=== PATIENT | female | born 1935 | race Caucasian/White ===

== ENCOUNTER 2019-12-18 06:00 | Outpatient (RCR) | payer MEDICARE, SELFPAY | END 2020-01-13 23:59 | disposition home or self-care (01) | LOC: SPT 06:00 | PROVIDERS: PCP Family Medicine; Referring Provider Family Medicine; Visit Provider Family Medicine | DX: M99.01 Segmental and somatic dysfunction of cervical region (principal); M25.511 Pain in right shoulder; R26.89 Other abnormalities of gait and mobility | CPT/HCPCS: 97110; 97162 ==

== ENCOUNTER 2020-01-14 06:00 | Outpatient (RCR) | payer MEDICARE, SELFPAY | END 2020-02-13 23:59 | disposition home or self-care (01) | LOC: SPT 06:00 | PROVIDERS: PCP Family Medicine; Referring Provider Family Medicine; Visit Provider Family Medicine | DX: M99.01 Segmental and somatic dysfunction of cervical region (principal); M25.511 Pain in right shoulder; R26.89 Other abnormalities of gait and mobility | CPT/HCPCS: 97110 ==

== ENCOUNTER 2020-09-10 05:00 | Outpatient (CLI) | payer MEDICARE, SELFPAY ==
[2020-09-10 05:34] VITALS: BMI 25.4
[2020-09-10 05:38] VITALS: BP 154/85; PULSE 72; RESP 17; TEMP 36.9; O2SAT 94
[2020-09-10 08:06] VITALS: BP 146/84; PULSE 66; PULSE 69; O2SAT 95; O2SAT 96
--- NOTE | 2020-09-10 08:11 | PC.NURSE ---
left ambulatory at 0810
--- NOTE | 2020-09-17 15:03 | DCPLANNER ---
manager golf had message that patient received the monoclonal antibody infusion. manager golf called , to check on patient after receiving the infusion. manager golf was unable to speak with patient and unable to leave a voicemail due to a busy signal when called patients phone number.
== END 2020-09-10 05:01 | disposition home or self-care (01) ==
LOC: ER 05:04
PROVIDERS: PCP Family Medicine; Visit Provider Family Medicine
DX: U07.1 COVID-19 (principal)
CPT/HCPCS: 96365

== ENCOUNTER 2020-12-23 09:17 | Outpatient (CLI) | payer MEDICARE, SELFPAY ==
--- NOTE | 2020-12-23 09:24 | MM_ITS ---
WS: [id number] BILATERAL DIGITAL SCREENING MAMMOGRAPHY WITH CAD CLINICAL INFORMATION: SCREENING HISTORY: Screening mammogram. No current complaints. COMPARISON: TECHNIQUE: Bilateral CC and MLO views. FINDINGS: Scattered fibroglandular densities bilaterally. Vascular calcifications. A few stable punctate calcifications. No suspicious focal mass, asymmetry, c alcifications, or architectural distortion. No evidence of malignancy. MM/[place] [id number] IMPRESSION: BI-RADS: 2-Benign FOLLOW UP: 1 Year Follow-up Recommend return to annual screening mammography.
== END 2020-12-23 09:18 | disposition home or self-care (01) ==
LOC: RADSHAW 09:23
PROVIDERS: PCP Family Medicine; Visit Provider Family Medicine
DX: Z12.31 Encounter for screening mammogram for malignant neoplasm of breast (principal)
CPT/HCPCS: 77067

== ENCOUNTER 2021-06-07 10:20 | Outpatient (CLI) | payer SELFPAY ==
--- NOTE | 2021-06-07 11:32 | XR_ITS ---
WS: [id number] PELVIS AND LEFT HIP HISTORY: LOW BACK PAIN/FALL COMPARISON: 02/18/2013 and 05/23/2018 LEFT hip: No acute fracture or dislocation. . Mild narrowing of the LEFT hip joint. Similar to the RI GHT hip joint. Mild surface irregularity along the femoral head cortex. SI joints are mildly narrowed bilaterally. No acute fractures are identified within the pelvis. No so ft tissue abnormality. XR/XR hip LT 2-3V wo/w pel* [id number] IMPRESSION: 1. No LEFT hip fracture. 2. 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
== END 2021-06-07 10:21 | disposition home or self-care (01) ==
PROVIDERS: PCP Family Medicine; Visit Provider Family Medicine
DX: M54.50 Low back pain, unspecified (principal); Z91.81 History of falling; M25.552 Pain in left hip
CPT/HCPCS: 73502

== ENCOUNTER 2021-06-11 16:18 | Outpatient (CLI) | payer MEDICARE, SELFPAY ==
--- NOTE | 2021-06-11 16:31 | XRR_ITS ---
PROCEDURE INFORMATION: Exam: XR Lumbosacral Spine Exam date and time: 06/11/2021 4:32 PM Age: 85 years old Clinical indication: Fall with blunt trauma and pain. Low back pain. TECHNIQUE: Imaging protocol: XR of the lumbosacral spine. Views: 2 or 3 views. COMPARISON: CR Sacrum and Coccyx [id number] 05/23/2018 11:43 AM FINDINGS: Bones/joints: There are 5 lumbar type vertebral bodies. Grade 1 anterolisthesis of L4 and L5 likely related to facet joint degeneration. Mild to moderate degenerative disc disease is noted in the visualized thoracolumbar spine. No acute fracture is identified. The sacroiliac joints are grossly symmetric. The sacrum is partially obscured by overlying bowel gas/stool. Soft tissues: No gross soft tissue swelling. XR/XR lumbar spine 2-3V* [id number] IMPRESSION: 1. No acute fracture. 2. Grade 1 anterolisthesis of L4 and L5 likely related to facet joint degeneration. 3. Mild to moderate degenerative disc disease is noted in the visualized thoracolumbar spine. 4. Consider MRI to further assess if clinically warranted.
== END 2021-06-11 16:19 | disposition home or self-care (01) ==
LOC: RAD 16:26
PROVIDERS: PCP Family Medicine; Visit Provider Family Medicine
DX: M54.50 Low back pain, unspecified (principal); Z91.81 History of falling
CPT/HCPCS: 72100

== ENCOUNTER → 2022-03-08 14:31 | Outpatient (BNVA) | payer MEDICARE, SELFPAY | PROVIDERS: PCP Family Medicine; Visit Provider Podiatrist Foot & Ankle Surgery | DX: E11.42 Type 2 diabetes mellitus with diabetic polyneuropathy (principal); L84 Corns and callosities; M20.41 Other hammer toe(s) (acquired), right foot; M20.42 Other hammer toe(s) (acquired), left foot; M21.41 Flat foot [pes planus] (acquired), right foot; M21.42 Flat foot [pes planus] (acquired), left foot; L60.3 Nail dystrophy; M21.612 Bunion of left foot; M21.611 Bunion of right foot | CPT/HCPCS: 11056; 11721; 99204 ==

== ENCOUNTER 2022-03-11 16:58 | Emergency (ER) | payer MEDICARE, SELFPAY ==
[2022-03-11 17:02] VITALS: BP 162/53; PULSE 62; RESP 18; TEMP 36.8; O2SAT 95
--- NOTE | 2022-03-11 18:53 | ECG_ITS ---
[facility] Test Date: 2022-03-11 Pat Name: Sandhya Solis Department: Room: Gender: Female Line Cleaner: : 1935 Requested By: Ernesto Ceballos Order Number: [id number] Niecy MD: Alix Brock M.D. Measurements Intervals [place] Rate: 66 P: -3 SD: 146 QRS: -38 QRSD: 128 T: 44 QT: 436 QTc: 457 Interpretive Statements SINUS RHYTHM LEFT AXIS DEVIATION [QRS AXIS < -30] RIGHT BUNDLE BRANCH BLOCK [120+ ms QRS DURATION, UPRIGHT V1, 40+ ms S IN I/aVL/V4/V5/V6] SEPTAL MYOCARDIAL INFARCTION , OF INDETERMINATE AGE Compared to ECG 09/27/2017 14:47:17 Left-axis deviation now present Right bundle-branch block now present Myocardial infarct finding now present Sinus bradycardia no longer present T-wave abnormality no longer present Electronically Signed On 03-11-2022 21:43:08 WOMEN'S APPAREL SALESPERSON by Alix Brock M.D. [id number]
--- NOTE | 2022-03-11 20:10 | ECG_ITS ---
[facility] Test Date: 2022-03-11 Pat Name: Sandhya Solis Department: Room: Gender: Female Window Framer: : 1935 Requested By: Maxim Goldsmith Order Number: [id number] Niecy MD: Alix Brock M.D. Measurements Intervals [place] Rate: 64 P: -76 MI: 135 QRS: -31 QRSD: 133 T: 46 QT: 434 QTc: 449 Interpretive Statements JUNCTIONAL RHYTHM LEFT AXIS DEVIATION [QRS AXIS < -30] RIGHT BUNDLE BRANCH BLOCK [120+ ms QRS DURATION, UPRIGHT V1, 40+ ms S IN I/aVL/V4/V5/V6] SEPTAL MYOCARDIAL INFARCTION , OF INDETERMINATE AGE [40+ ms Q WAVE IN V1/V2] Compared to ECG 03/11/2022 17:05:53 Junctional rhythm now present Sinus rhythm no longer present Myocardial infarct finding still present Electronically Signed On 03-11-2022 21:40:18 CHIEF RESOURCE OFFICER by Alix Brock M.D. [id number]
[2022-03-11 20:14] VITALS: BP 171/78; PULSE 64; RESP 24; O2SAT 98
[2022-03-11 20:17] LABS: Basophils % 0.3 %; Eosinophils # 0.2 10^3/uL (0.0-0.8); Eosinophils % 1.3 %; Hematocrit 45.7 % (37.0-47.0); Hemoglobin 15.1 g/dL (11.5-15.3); Lymphocytes % 64.2 %; Mean Corpuscular Hemoglobin 30.4 pg (28.0-34.0); Mean Corpuscular Volume 92.1 fl (81-99); Monocytes # 0.7 10^3/uL (0.2-0.9); Monocytes % 5.5 %; Neutrophils # 3.53 10^3/uL (1.8-7.7); Neutrophils % 28.5 %; Nucleated Red Blood Cells % 0 %; Platelet Count 274 10^3/cmm (130-400); Red Blood Count 4.96 10^6/uL (4.1-5.3); Red Cell Distribution Width 12.6 % (12.1-15.1); White Blood Count 12.4 10^3/uL (4.0-10.0)
[2022-03-11 20:26] LABS: D Dimer 0.45 ug/mIFEU (0-0.59)
[2022-03-11 20:33] LABS: Troponin(5th) Baseline 12 ng/L (0-10)
[2022-03-11 20:42] LABS: Alanine Aminotransferase 18 U/L (0-33); Albumin Level 4.3 g/dL (3.5-5.2); Alkaline Phosphatase 67 U/L (35-105); Anion Gap 13.8 (5-19); Aspartate Amino Transferase 17 U/L (0-32); Blood Urea Nitrogen 30 mg/dL (8-23); Calcium 9.2 mg/dL (8.5-10.5); Carbon Dioxide 31 mmol/L (22-29); Chloride 100 mmol/L (98-107); Globulin 3.2 g/dL (1.3-4.6); Glucose 194 mg/dL (65-115); Lipase 53 U/L (13-60); NT Pro B Type Natriuretic Pept 178 pg/mL (0-450); Osmolality Calculated 303 mOsm/kg (285-295); Potassium 3.8 mmol/L (3.5-5.1); Sodium 141 mmol/L (136-145); Total Bilirubin 0.2 mg/dL (0.15-1.2); Total Protein 7.5 g/dL (6.6-8.7)
[2022-03-11 20:56] LABS: Slide Review Slide Review Perform
--- NOTE | 2022-03-11 21:30 | W.ED.CHESTPA ---
HPI - Chest Pain General: Chief Complaint: Chest Pain Stated Complaint: chest pain Time Seen by Provider: 03/11/22 20:02 Source: patient and family History of Present Illness: This is an 86-year-old lady with no prior history of coronary disease. After a meal, she experienced a discomfort that was epigastric radiating into her chest. It lasted well over 30 minutes. It was significant. It made her short of breath. She was nauseated as well. She did not throw up. She did not become diaphoretic. Symptoms resolved on their own. She has not had the symptoms since. MD complaint: chest pain Onset (ago): hour(s) (430pm) Prior episodes: No Onset: during rest and after eating Pain location: substernal and epigastric Quality: heaviness Relieving factors: nothing Exacerbating factors: nothing Associated symptoms: Reports dyspnea and nausea; Deny abdominal pain, diaphoresis, fever(s), syncope or vomiting Risk Factors: Coronary artery disease risk factors: diabetes Review of Systems Const: Denies: fever(s) or diaphoresis ENMT: Denies: throat pain Card: Reports: chest pain; Denies: irregular heart rhythm or syncope Resp: Reports: dyspnea GI: Reports: nausea; Denies: abdominal pain or vomiting Physical Exam Const: COMMON NORMALS: no acute distress GENERAL APPEARANCE: cooperative and frail appearing (mildly, age appropriate); not ill appearing HENMT: COMMON NORMALS: normocephalic, atraumatic and Normal external nose present HEAD & SCALP: normocephalic and atraumatic FACE & SINUS: normal facial exam and face symmetric NOSE: Normal external nose present Eye: COMMON NORMALS: Equal, round and reactive pupils present and EOMs intact bilaterally PUPIL: Yes Equal, round and reactive pupils present Neck/C-Spine: GENERAL: Yes trachea midline Chest: CHEST: Yes Symmetrical chest wall rise Resp: COMMON NORMALS: normal respiratory effort, No retractions, No use of accessory muscles and clear to auscultation bilaterally AUSCULTATION: clear to auscultation bilaterally Cardio: COMMON NORMALS: regular rate and regular rhythm RATE: regular rate RHYTHM: regular rhythm GI: COMMON NORMALS: Normal to inspection, nondistended, normoactive bowel sounds present Extremity: COMMON NORMALS: no pedal edema Neuro: WOLF COMA SCALE: document GCS findings Wolf coma scale eye opening: Spontaneous Wolf coma scale verbal response: Orientated Wolf coma scale motor response: Obey commands Wolf coma scale total score: 15 SENSORY EXAM: Yes extremities (intact) Psych: COMMON NORMALS: speech normal SPEECH: Yes normal speech Skin: COMMON NORMALS: no rashes or lesions noted GENERAL SKIN EXAM: no rashes or lesions noted Course Vital Signs: Vital signs: Vital Signs Temperature 98.3 F 03/11/22 17:02 Pulse Rate 65 03/11/22 22:13 Respiratory Rate 24 H 03/11/22 22:13 Blood Pressure 200/90 03/11/22 22:13 Pulse Oximetry 97 03/11/22 22:13 Oxygen Delivery Me thod 03/11/22 22:13 MDM - Chest Pain Medical Decision Making 86-year-old female with resolved chest discomfort. Could be GI in nature, as she had onset of pain after eating that is self resolved. Vitals are good here. EKG shows a junctional rhythm with left axis deviation. She has a right bundle branch block as well. There is no acute ST change. Rate is 65. CBC shows a white blood cell count of 12.4 without a left shift. D-dimer is 0.45. Troponin delta at 2 hours is 0.88. Lipase is 53. With resolution of her pain, she will be allowed home Lab Data 03/11/22 19:57 03/11/22 19:57 Laboratory Results WBC 12.4 10^3/uL (4.0-10.0) H 03/11/22 19:57 RBC 4.96 10^6/uL (4.1-5.3) 03/11/22 19:57 Hgb 15.1 g/dL (11.5-15.3) 03/11/22 19:57 Hct 45.7 % (37.0-47.0) 03/11/22 19:57 MCV 92.1 fl (81-99) 03/11/22 19:57 MCH 30.4 pg (28.0-34.0) 03/11/22 19:57 MCHC 33.0 g/dL (30.0-36.0) 03/11/22 19:57 RDW 12.6 % (12.1-15.1) 03/11/22 19:57 Plt Count 274 10^3/cmm (130-400) 03/11/22 19:57 MPV 10.0 fL (7.4-10.4) 03/11/22 19:57 Neut % (Auto) 28.5 % 03/11/22 19:57 Lymph % (Auto) 64.2 % 03/11/22 19:57 [place] % (Auto) 5.5 % 03/11/22 19:57 Eos % (Auto) 1.3 % 03/11/22 19:57 Baso % (Auto) 0.3 % 03/11/22 19:57 Neut # (Auto) 3.53 10^3/uL (1.8-7.7) 03/11/22 19:57 Lymph # (Auto) 8.0 10^3/uL (0.8-4.8) H 03/11/22 19:57 [place] # (Auto) 0.7 10^3/uL (0.2-0.9) 03/11/22 19:57 Eos # (Auto) 0.2 10^3/uL (0.0-0.8) 03/11/22 19:57 Baso # (Auto) 0.0 10^3/uL (0.0-0.1) 03/11/22 19:57 Nucleated RBC % (auto) 0 % 03/11/22 19:57 Nucleated RBCs # 0.0 /100WBC 03/11/22 19:57 D-Dimer 0.45 ug/mIFEU (0-0.59) 03/11/22 19:57 Sodium 141 mmol/L (136-145) 03/11/22 19:57 Potassium 3.8 mmol/L (3.5-5.1) 03/11/22 19:57 Chloride 100 mmol/L (98-107) 03/11/22 19:57 Carbon Dioxide 31 mmol/L (22-29) H 03/11/22 19:57 Anion Gap 13.8 (5-19) 03/11/22 19:57 BUN 30 mg/dL (8-23) H 03/11/22 19:57 Creatinine 0.9 mg/dL (0.5-0.9) 03/11/22 19:57 GFR Calculation Not Reportable 03/11/22 19:57 Glucose 194 mg/dL (65-115) H 03/11/22 19:57 Calculated Osmolality 303 mOsm/kg (285-295) H 03/11/22 19:57 Calcium 9.2 mg/dL (8.5-10.5) 03/11/22 19:57 Total Bilirubin 0.2 mg/dL (0.15-1.2) 03/11/22 19:57 AST 17 U/L (0-32) 03/11/22 19:57 ALT 18 U/L (0-33) 03/11/22 19:57 Alkaline Phosphatase 67 U/L (35-105) 03/11/22 19:57 Troponin T Baseline 12 ng/L (0-10) H 03/11/22 19:57 Troponin T 120 Minute 12.88 ng/L (0-10) H 03/11/22 22:13 Delta Troponin T 0.88 ABS# (0-10) 03/11/22 22:13 NT-Pro-B Natriuret Pep 178 pg/mL (0-450) 03/11/22 19:57 Total Protein 7.5 g/dL (6.6-8.7) 03/11/22 19:57 Albumin 4.3 g/dL (3.5-5.2) 03/11/22 19:57 Globulin 3.2 g/dL (1.3-4.6) 03/11/22 19:57 Lipase 53 U/L (13-60) 03/11/22 19:57 Discharge Plan Discharge Patient Disposition: Home Clinical Impression: Chest pain Condition: Stable Prescriptions: No Action lisinopril 5 mg tablet PO glimepiride 1 mg tablet PO Discharge Orders: Discharge ED (Routine); Ordered 03/11/22 Ordered By: Garth Lehman Referrals: Annie Myles MD [Primary Care Provider] - 4-7 days Patient Instructions: Chest Pain (ED), Esophageal Spasm (ED) Activity Restrictions/Additional Instructions: Testing of your heart and lungs this evening did not reveal a cause of your chest pain. With pain that started after eating, and spontaneous resolution, I would consider esophageal spasm a likely cause. Return for repeated episodes of chest discomfort, shortness of breath, fever, syncope or passing out, any other concerning symptoms. Coding Level of Care Code ED Macroeconomics Professor for Chg Fwd Exam Comprehensive
[2022-03-11 22:13] VITALS: BP 200/90; PULSE 65; RESP 24; O2SAT 97
[2022-03-11] MEDS: enalaprilat 1.25 mg/mL Inj IVP (22:16)
[2022-03-11] MEDS: labetalol 5 mg/mL SDV 20mL 20 MG IVP (22:16)
[2022-03-11 23:19] LABS: Troponin 5 2HR 12.88 ng/L (0-10)
[2022-03-11 23:29] LABS: Troponin 5 2HR Delta 0.88 ABS# (0-10)
== END 2022-03-12 00:07 | disposition home or self-care (01) ==
PROVIDERS: Nurse Practitioner Family; Emergency Provider Emergency Medicine; PCP Family Medicine
DX: R07.9 Chest pain, unspecified (principal); Z79.84 Long term (current) use of oral hypoglycemic drugs
CPT/HCPCS: 36415; 80053; 83690; 83880; 84484; 85025; 85378; 93005; 96374; 96375; 99284; J3490

== ENCOUNTER 2022-05-23 13:04 | Outpatient (CLI) | payer MEDICARE, SELFPAY ==
--- NOTE | 2022-05-23 13:24 | XR_ITS ---
WS: [id number] DEXA (DUAL ENERGY X-RAY ABSORPTIOMETRY) Bone mineral density was performed using a [employer] machine. HISTORY: AGE RELATED OSTEOPOROSIS COMPARISON: 09/22/2015 Lumbar spine BMD (L1-L4): 1.096 g/cm2 T score: -0.7 Z score: 1.3 Total hip BMD: Left: 0.833 g/cm2. T score: -1.4 Z score: 0.9 Right: 0.805 g/cm2. T score: -1.6 Z score: 0.7 10 year probability of a major osteoporotic fracture is 18.1%. Compared to the prior study from 09/22/2015. Lumbar spine bone mineral density has increased by 1.4%. Bilateral hips bone mineral density has decrease by 1.6%. XR/XR DEXA axial skeleton* [id number] IMPRESSION: OSTEOPENIA based upon the WHO classification for females. No significant change in bone mineral density since the prior study.
--- NOTE | 2022-05-23 13:31 | MM_ITS ---
WS: [id number] BILATERAL 3D TOMOSYNTHESIS DIGITAL SCREENING MAMMOGRAPHY WITH CAD CLINICAL INFORMATION: SCREENING HISTORY: Screening mammogram. No current complaints. COMPARISON: 2020 TECHNIQUE: Bilateral CC and MLO views. FINDINGS: Scattered fibroglandular densities bilaterally. No suspicious focal mass, asymmetry, calcifications, or architectural distortion. No evidence of malignancy. Vascular calcification. Punctate and lucent c entered calcifications. MM/[place] [id number] IMPRESSION: BI-RADS: 2-Benign FOLLOW UP: 1 Year Follow-up Recommend return to annual screening mammography.
== END 2022-05-23 13:05 | disposition home or self-care (01) ==
PROVIDERS: PCP Family Medicine; Visit Provider Family Medicine
DX: Z12.31 Encounter for screening mammogram for malignant neoplasm of breast (principal); M81.0 Age-related osteoporosis without current pathological fracture
CPT/HCPCS: 77063; 77067; 77080

== ENCOUNTER → 2022-06-21 09:30 | Outpatient (BNVA) | payer MEDICARE, SELFPAY | PROVIDERS: PCP Family Medicine; Visit Provider Podiatrist Foot & Ankle Surgery | DX: E11.42 Type 2 diabetes mellitus with diabetic polyneuropathy (principal); L84 Corns and callosities; L60.3 Nail dystrophy; M21.42 Flat foot [pes planus] (acquired), left foot; M21.41 Flat foot [pes planus] (acquired), right foot; M20.42 Other hammer toe(s) (acquired), left foot; M20.41 Other hammer toe(s) (acquired), right foot; M21.612 Bunion of left foot; M21.611 Bunion of right foot | CPT/HCPCS: 11056; 11721 ==

== ENCOUNTER 2022-08-03 09:12 | Oncology outpatient (recurring) (ONCR) | payer MEDICARE, SELFPAY | END 2022-08-12 23:59 | disposition home or self-care (01) | PROVIDERS: PCP Family Medicine; Visit Provider Internal Medicine Medical Oncology | DX: D72.829 Elevated white blood cell count, unspecified (principal) | CPT/HCPCS: 99203 ==

== ENCOUNTER → 2022-08-30 09:08 | Outpatient (BNVA) | payer MEDICARE, SELFPAY | PROVIDERS: PCP Family Medicine; Visit Provider Podiatrist Foot & Ankle Surgery | DX: E11.42 Type 2 diabetes mellitus with diabetic polyneuropathy (principal); L60.3 Nail dystrophy; M21.42 Flat foot [pes planus] (acquired), left foot; M21.41 Flat foot [pes planus] (acquired), right foot; M20.42 Other hammer toe(s) (acquired), left foot; M20.41 Other hammer toe(s) (acquired), right foot; L84 Corns and callosities; M21.611 Bunion of right foot; M21.612 Bunion of left foot | CPT/HCPCS: 11056; 11721 ==

== ENCOUNTER 2022-10-06 12:03 | Oncology outpatient (recurring) (ONCR) | payer MEDICARE, SELFPAY ==
[2022-10-06 12:08] VITALS: BMI 25.7
[2022-10-06 12:09] VITALS: BP 154/79; PULSE 66; RESP 18; TEMP 36.1; O2SAT 95
[2022-10-06 12:23] LABS: Basophils # 0.1 10^3/uL (0.0-0.1); Basophils % 0.4 %; Eosinophils # 0.3 10^3/uL (0.0-0.8); Eosinophils % 1.8 %; Hematocrit 43.8 % (36-47); Lymphocytes # 7.6 10^3/uL (0.8-4.8); Lymphocytes % 55.2 %; Mean Corpuscular HGB Conc 33.1 g/dL (30-55); Mean Corpuscular Volume 93.6 fl (85-98); Mean Platelet Volume 9.4 fL (7.4-10.4); Monocytes # 0.9 10^3/uL (0.2-0.9); Monocytes % 6.6 %; Neutrophils % 35.8 %; Nucleated Red Blood Cells % 0 %; Platelet Count 237 10^3/cmm (157-399); Red Blood Count 4.68 10^6/uL (3.85-5.65); Red Cell Distribution Width 13.6 % (12.1-15.1); White Blood Count 13.68 10^3/uL (3.29-11.43)
[2022-10-06 12:38] LABS: Slide Review Slide Review Perform
== END 2022-10-13 23:59 | disposition home or self-care (01) ==
PROVIDERS: PCP Family Medicine; Visit Provider Internal Medicine Medical Oncology
DX: D72.829 Elevated white blood cell count, unspecified (principal)
CPT/HCPCS: 36415; 85025; 99213

== ENCOUNTER → 2022-11-07 09:25 | Outpatient (BNVA) | payer MEDICARE, SELFPAY | PROVIDERS: PCP Family Medicine; Visit Provider Podiatrist Foot & Ankle Surgery | DX: L84 Corns and callosities (principal); E11.42 Type 2 diabetes mellitus with diabetic polyneuropathy; L60.3 Nail dystrophy; M21.612 Bunion of left foot; M21.611 Bunion of right foot; M20.42 Other hammer toe(s) (acquired), left foot; M20.41 Other hammer toe(s) (acquired), right foot; M21.42 Flat foot [pes planus] (acquired), left foot; M21.41 Flat foot [pes planus] (acquired), right foot | CPT/HCPCS: 11056; 11721 ==

== ENCOUNTER 2022-12-15 11:30 | Oncology outpatient (recurring) (ONCR) | payer MEDICARE, SELFPAY ==
[2022-12-15 14:49] VITALS: BP 154/82; PULSE 64; RESP 17; TEMP 36.9; O2SAT 93
[2022-12-15 15:19] LABS: Mean Corpuscular HGB Conc 32.9 g/dL (30-55); Mean Corpuscular Volume 94.3 fl (85-98); Platelet Count 243 10^3/cmm (157-399); Red Blood Count 4.77 10^6/uL (3.85-5.65); Red Cell Distribution Width 12.4 % (12.1-15.1); White Blood Count 11.71 10^3/uL (3.29-11.43)
[2022-12-15 15:50] LABS: Alanine Aminotransferase 19 U/L (0-33); Albumin Level 4.3 g/dL (3.5-5.2); Alkaline Phosphatase 61 U/L (35-105); Aspartate Amino Transferase 19 U/L (0-32); Blood Urea Nitrogen 20 mg/dL (8-23); Calcium 10.1 mg/dL (8.5-10.5); Carbon Dioxide 31 mmol/L (22-29); Chloride 99 mmol/L (98-107); Glucose 207 mg/dL (65-115); Osmolality Calculated 299 mOsm/kg (285-295); Sodium 140 mmol/L (136-145); Total Bilirubin 0.2 mg/dL (0.15-1.2); Total Protein 7.3 g/dL (6.6-8.7)
[2022-12-15 15:51] LABS: Anion Gap 14.1 (5-19); Potassium 4.1 mmol/L (3.5-5.1)
[2022-12-15 15:59] LABS: Absolute Segmented Neutrophil 3.7 10/cmm (1.6-7.1); Eosinophils 0 %; Lymphocytes 35 %; Monocytes Absolute 0.6 10^3/cmm (0.1-0.6); Segmented Neutrophils 32 %; Slide Review Slide Review Perform; Total Cells Counted 100 (0-100)
[2022-12-15 16:00] LABS: Absolute Neutrophil 3.7 10^3/cmm (1.4-6.5); Anisocytosis 1+; Lymphocytes Absolute 7.4 10^3/cmm (1.2-3.4); Macrocytosis 1+; Platelet Estimate Normal (Normal)
[2022-12-15 17:29] LABS: Lactate Dehydrogenase 152 U/L (135-214)
[2022-12-15 18:33] LABS: LAB Peripheral Smear Sent for Review
[2022-12-20 06:29] LABS: Leukemia Profile (BBPL) See Report; Lymphoma Profile (BBPL) See Report
== END 2023-01-12 23:59 | disposition home or self-care (01) ==
PROVIDERS: Internal Medicine; PCP Family Medicine; Visit Provider Internal Medicine Medical Oncology
DX: D72.829 Elevated white blood cell count, unspecified (principal); D72.820 Lymphocytosis (symptomatic); Z79.899 Other long term (current) drug therapy
CPT/HCPCS: 36415; 80053; 80503; 83615; 85007; 85025; 88184; 88185; 99213

== ENCOUNTER → 2023-01-31 09:28 | Outpatient (BNVA) | payer MEDICARE, SELFPAY | PROVIDERS: PCP Family Medicine; Visit Provider Podiatrist Foot & Ankle Surgery | DX: L84 Corns and callosities (principal); M21.619 Bunion of unspecified foot; M20.41 Other hammer toe(s) (acquired), right foot; M20.42 Other hammer toe(s) (acquired), left foot; M21.41 Flat foot [pes planus] (acquired), right foot; M21.42 Flat foot [pes planus] (acquired), left foot; E11.42 Type 2 diabetes mellitus with diabetic polyneuropathy; L60.3 Nail dystrophy | CPT/HCPCS: 11056; 11721 ==

== ENCOUNTER 2023-03-01 13:24 | Oncology outpatient (recurring) (ONCR) | payer MEDICARE, SELFPAY ==
[2023-03-01 13:27] VITALS: BP 136/74; PULSE 58; RESP 17; O2SAT 96
== END 2023-03-15 23:59 | disposition home or self-care (01) ==
LOC: ONCMED 13:25
PROVIDERS: PCP Family Medicine; Visit Provider Internal Medicine Medical Oncology
DX: D72.829 Elevated white blood cell count, unspecified (principal); D72.820 Lymphocytosis (symptomatic); Z79.899 Other long term (current) drug therapy
CPT/HCPCS: 36415

== ENCOUNTER 2023-03-16 11:59 | Oncology outpatient (recurring) (ONCR) | payer MEDICARE, SELFPAY ==
[2023-03-16 12:28] LABS: Basophils % 0.5 %; Eosinophils # 0.1 10^3/uL (0.0-0.8); Eosinophils % 1.1 %; Hematocrit 45.5 % (36-47); Lymphocytes # 5.5 10^3/uL (0.8-4.8); Lymphocytes % 62.2 %; Mean Corpuscular HGB Conc 32.5 g/dL (30-55); Mean Corpuscular Hemoglobin 30.3 pg (27-33); Mean Platelet Volume 10.6 fL (7.4-10.4); Monocytes # 0.6 10^3/uL (0.2-0.9); Monocytes % 7.1 %; Neutrophils # 2.54 10^3/uL (1.8-7.7); Neutrophils % 28.9 %; Nucleated Red Blood Cells % 0 %; Platelet Count 231 10^3/cmm (157-399); Red Blood Count 4.89 10^6/uL (3.85-5.65); Red Cell Distribution Width 12.4 % (12.1-15.1); White Blood Count 8.78 10^3/uL (3.29-11.43)
[2023-03-16 12:56] LABS: Alanine Aminotransferase 18 U/L (0-33); Albumin Level 4.1 g/dL (3.5-5.2); Alkaline Phosphatase 67 U/L (35-105); Blood Urea Nitrogen 23 mg/dL (8-23); Calcium 9.4 mg/dL (8.5-10.5); Carbon Dioxide 28 mmol/L (22-29); Chloride 99 mmol/L (98-107); Glucose 397 mg/dL (65-115); Osmolality Calculated 308 mOsm/kg (285-295); Sodium 139 mmol/L (136-145); Total Bilirubin 0.2 mg/dL (0.15-1.2); Total Protein 7.1 g/dL (6.6-8.7)
[2023-03-16 12:58] LABS: Anion Gap 16.6 (5-19); Aspartate Amino Transferase 18 U/L (0-32); Lactate Dehydrogenase 175 U/L (135-214); Potassium 4.6 mmol/L (3.5-5.1)
[2023-03-16 13:02] LABS: Slide Review Slide Review Perform
[2023-03-16 15:09] LABS: Uric Acid 5.4 mg/dL (2.4-5.7)
[2023-03-16 15:10] LABS: Immunoglobulin IGA 418 mg/dL (70-400); Immunoglobulin IGG 962 mg/dL (700-1600); Immunoglobulin IGM 33 mg/dL (40-230)
[2023-03-20 12:37] LABS: Leukemia Profile (BBPL) See Report; Lymphoma Profile (BBPL) See Report
== END 2023-04-13 23:59 | disposition home or self-care (01) ==
PROVIDERS: Internal Medicine; PCP Family Medicine; Visit Provider Internal Medicine Medical Oncology
DX: Z79.899 Other long term (current) drug therapy; D72.820 Lymphocytosis (symptomatic); D72.829 Elevated white blood cell count, unspecified; R73.9 Hyperglycemia, unspecified
CPT/HCPCS: 36415; 80053; 82784; 83615; 84550; 85025; 88184; 88185; 99214

== ENCOUNTER 2023-04-06 14:34 | Outpatient (CLI) | payer MEDICARE, SELFPAY ==
--- NOTE | 2023-04-06 14:30 | CT_ITS ---
WS: [id number] CT CHEST, ABDOMEN AND PELVIS WITH CONTRAST HISTORY: leukocytosis TECHNIQUE: Contiguous 5 mm axial imaging performed through the chest, abdomen and pelvis with IV cont rast, oral contrast has been provided. Coronal and sagittal reformats chest. Coronal and sagittal ref ormats through the abdomen and pelvis. All CT scans at [facility] use at least one of these d ose optimization techniques: automated exposure control; mA and/or kV adjustment per patient size (in cludes targeted exams where dose is matched to clinical indication); or iterative reconstruction. CONTRAST: Omnipaque 350; 100 mL IV. DLP: 724.51 mGy.cm COMPARISON: None available. Chest CT: Imaging through the chest was obtained during expiration. There is crowding of the lung mar kings. Hazy attenuation would improve with better inspiration. No mass, nodule or pneumonia. No peric ardial or pleural effusions. Moderate cardiomegaly. No mediastinal or hilar adenopathy. Mild atherosc lerosis aorta. Normal size pulmonary artery. No bone destruction. Mild thoracic spondylosis. Abdomen CT: Normal liver and spleen. Normal portal vein. Normal gallbladder and adrenal glands. Mild pancreatic atrophy. Pancreatic duct is normal size. Normal common bile duct. No pancreatitis. Normal size kidneys with no solid mass. There is a nonobstructing 8 mm calcification lower pole RIGHT kidney . No adenopathy or ascites. Stomach is well distended with oral contrast. No small bowel obstruction. No colon obstruction or submucosal edema. No significant diverticular disease and no acute diverticu litis or colitis. The appendix has been surgically removed. Scattered plaque within the aorta. Small hiatal hernia containing fat only. No ascites. No retroperitoneal or mesenteric adenopathy. Pelvic CT: No free fluid or adenopathy. Minimally distended urinary bladder. L4 anterolisthesis by 5 mm. No pars defects. IMPRESSION: 1. No acute abnormalities noted within the chest, abdomen or pelvis. 2. No ascites or adenopathy. 3. No pneumonia. 4. Prior appendectomy. 5. Negative gallbladder. 6. No pancreatitis. 7. Mild pancreatic atrophy.
[2023-04-06] MEDS: iohexol 350 mg/mL 100 mL Btl PO (16:06)
[2023-04-06] MEDS: iohexol 350 mg/mL 100 mL Btl IV (16:07)
== END 2023-04-06 14:35 | disposition home or self-care (01) ==
LOC: RAD 14:34
PROVIDERS: PCP Family Medicine; Visit Provider Internal Medicine
DX: D72.820 Lymphocytosis (symptomatic) (principal); D72.829 Elevated white blood cell count, unspecified; Z90.49 Acquired absence of other specified parts of digestive tract
CPT/HCPCS: 71260; 74177; Q9967

== ENCOUNTER → 2023-05-02 13:32 | Outpatient (BNVA) | payer MEDICARE, SELFPAY | PROVIDERS: PCP Family Medicine; Visit Provider Podiatrist Foot & Ankle Surgery | DX: M20.41 Other hammer toe(s) (acquired), right foot; M20.42 Other hammer toe(s) (acquired), left foot; M21.41 Flat foot [pes planus] (acquired), right foot; M21.42 Flat foot [pes planus] (acquired), left foot; E11.42 Type 2 diabetes mellitus with diabetic polyneuropathy; M21.611 Bunion of right foot; M21.612 Bunion of left foot | CPT/HCPCS: 99213 ==

== ENCOUNTER 2023-05-26 13:28 | Outpatient (CLI) | payer MEDICARE, SELFPAY ==
--- NOTE | 2023-05-26 13:53 | MM_ITS ---
WS: [id number] BILATERAL 3D TOMOSYNTHESIS DIGITAL SCREENING MAMMOGRAPHY WITH CAD CLINICAL INFORMATION: SCREENING HISTORY: Screening mammogram. No current complaints. COMPARISON: 05/23/2022 TECHNIQUE: Bilateral CC and MLO views. FINDINGS: Scattered fibroglandular densities bilaterally. No suspicious focal mass, asymmetry, calcifications, or architectural distortion. No evidence of malignancy. Vascular calcification. Secretory calcificati ons. Incidental punctate calcifications. IMPRESSION: MM/[place] [id number] BI-RADS: 2-Benign FOLLOW UP: 1 Year Follow-up Recommend return to annual screening mammography.
== END 2023-05-26 13:29 | disposition home or self-care (01) ==
LOC: RAD 13:29
PROVIDERS: PCP Family Medicine; Visit Provider Family Medicine
DX: Z12.31 Encounter for screening mammogram for malignant neoplasm of breast (principal)
CPT/HCPCS: 77063; 77067

== ENCOUNTER → 2023-05-30 16:26 | Outpatient (BNVA) | payer MEDICARE, SELFPAY | PROVIDERS: PCP Family Medicine; Visit Provider Registered Nurse Neonatal Intensive Care | DX: R39.9 Unspecified symptoms and signs involving the genitourinary system (principal) | CPT/HCPCS: 81000 ==

== ENCOUNTER 2023-06-20 10:35 | Oncology outpatient (recurring) (ONCR) | payer MEDICARE, SELFPAY ==
[2023-06-20 11:27] LABS: Basophils % 0.2 %; Eosinophils # 0.1 10^3/uL (0.0-0.8); Eosinophils % 0.7 %; Lymphocytes # 5.5 10^3/uL (0.8-4.8); Mean Corpuscular HGB Conc 32.5 g/dL (30-55); Mean Corpuscular Hemoglobin 30.5 pg (27-33); Mean Corpuscular Volume 93.8 fl (85-98); Mean Platelet Volume 10.2 fL (7.4-10.4); Monocytes # 0.5 10^3/uL (0.2-0.9); Monocytes % 5.7 %; Neutrophils # 3.36 10^3/uL (1.8-7.7); Neutrophils % 35.2 %; Nucleated Red Blood Cells % 0 %; Platelet Count 222 10^3/cmm (157-399); Red Blood Count 4.69 10^6/uL (3.85-5.65); Red Cell Distribution Width 13.2 % (12.1-15.1); White Blood Count 9.54 10^3/uL (3.29-11.43)
[2023-06-20 11:44] LABS: Alanine Aminotransferase 15 U/L (0-33); Albumin Level 3.9 g/dL (3.5-5.2); Alkaline Phosphatase 52 U/L (35-105); Anion Gap 13.6 (5-19); Aspartate Amino Transferase 16 U/L (0-32); Blood Urea Nitrogen 15 mg/dL (8-23); Calcium 9.2 mg/dL (8.5-10.5); Carbon Dioxide 30 mmol/L (22-29); Chloride 103 mmol/L (98-107); Globulin 2.6 g/dL (1.3-4.6); Glucose 257 mg/dL (65-115); Lactate Dehydrogenase 161 U/L (135-214); Osmolality Calculated 304 mOsm/kg (285-295); Potassium 4.6 mmol/L (3.5-5.1); Sodium 142 mmol/L (136-145); Total Bilirubin 0.3 mg/dL (0.15-1.2); Total Protein 6.5 g/dL (6.6-8.7); Uric Acid 4.4 mg/dL (2.4-5.7)
[2023-06-20 12:08] LABS: Slide Review Slide Review Perform
[2023-06-20 12:10] LABS: Hepatitis A Antibody IgM Non-Reactive (Nonreactive); Hepatitis B Core AB, Total Non-Reactive (Nonreactive); Hepatitis B Surface AB < 3.5 (11.5-1000); Hepatitis B Surface Antigen Non-Reactive (Nonreactive); Hepatitis C Virus Antibody Non-Reactive (Nonreactive)
[2023-06-23 02:20] LABS: Epstein Barr Virus DNA PCR NOT DETECTED; Epstein Barr Virus DNA QN PCR NOT DETECTED copies/mL; Epstein Barr Virus Source WHOLE BLOOD
== END 2023-07-14 23:59 | disposition home or self-care (01) ==
PROVIDERS: Internal Medicine; PCP Family Medicine; Visit Provider Internal Medicine Medical Oncology
DX: C91.10 Chronic lymphocytic leukemia of B-cell type not having achieved remission; Z79.899 Other long term (current) drug therapy; Z11.59 Encounter for screening for other viral diseases; R07.9 Chest pain, unspecified
CPT/HCPCS: 36415; 80053; 83615; 84550; 85025; 86705; 86706; 86709; 86803; 87340; 87798; 99214

== ENCOUNTER → 2023-07-14 10:02 | Outpatient (BNVA) | payer MEDICARE, SELFPAY | PROVIDERS: PCP Family Medicine; Referring Provider Family Medicine; Visit Provider Student in an Organized Health Care Education/Training Program | DX: M18.0 Bilateral primary osteoarthritis of first carpometacarpal joints | CPT/HCPCS: 20600; 73130; 99204; J3301; J3490 ==

== ENCOUNTER → 2023-08-03 15:22 | Outpatient (BNVA) | payer MEDICARE, SELFPAY | PROVIDERS: PCP Family Medicine; Visit Provider Student in an Organized Health Care Education/Training Program | DX: M75.31 Calcific tendinitis of right shoulder | CPT/HCPCS: 73030; 99214 ==

== ENCOUNTER → 2023-08-08 14:02 | Outpatient (BNVA) | payer MEDICARE, SELFPAY | PROVIDERS: PCP Family Medicine; Visit Provider Podiatrist Foot & Ankle Surgery | DX: E11.42 Type 2 diabetes mellitus with diabetic polyneuropathy (principal); I73.9 Peripheral vascular disease, unspecified; L60.3 Nail dystrophy | CPT/HCPCS: 11721 ==

== ENCOUNTER → 2023-10-10 14:06 | Outpatient (BNVA) | payer MEDICARE, SELFPAY | PROVIDERS: PCP Family Medicine; Visit Provider Physician Assistant | DX: M75.31 Calcific tendinitis of right shoulder (principal) | CPT/HCPCS: 20610; 99213; J3301 ==

== ENCOUNTER → 2023-10-24 11:16 | Outpatient (BNVA) | payer MEDICARE, SELFPAY | PROVIDERS: PCP Family Medicine; Visit Provider Podiatrist Foot & Ankle Surgery | DX: I73.9 Peripheral vascular disease, unspecified (principal); L60.3 Nail dystrophy; E11.42 Type 2 diabetes mellitus with diabetic polyneuropathy; L84 Corns and callosities | CPT/HCPCS: 11056; 11721 ==

== ENCOUNTER 2023-12-18 10:46 | Oncology outpatient (recurring) (ONCR) | payer MEDICARE, SELFPAY ==
[2023-12-18 11:04] LABS: Basophils % 0.4 %; Eosinophils # 0.1 10^3/uL (0.0-0.8); Eosinophils % 0.7 %; Lymphocytes # 5.9 10^3/uL (0.8-4.8); Lymphocytes % 57.6 %; Mean Corpuscular HGB Conc 33.1 g/dL (30-55); Mean Corpuscular Hemoglobin 31.2 pg (27-33); Mean Corpuscular Volume 94.3 fl (85-98); Mean Platelet Volume 9.3 fL (7.4-10.4); Monocytes # 0.7 10^3/uL (0.2-0.9); Monocytes % 6.7 %; Neutrophils # 3.55 10^3/uL (1.8-7.7); Neutrophils % 34.4 %; Nucleated Red Blood Cells % 0 %; Platelet Count 264 10^3/cmm (157-399); Red Blood Count 4.77 10^6/uL (3.85-5.65); Red Cell Distribution Width 13.7 % (12.1-15.1)
[2023-12-18 11:20] LABS: Alanine Aminotransferase 21 U/L (0-33); Albumin Level 4.2 g/dL (3.5-5.2); Alkaline Phosphatase 54 U/L (35-105); Anion Gap 12.2 (5-19); Aspartate Amino Transferase 17 U/L (0-32); Blood Urea Nitrogen 22 mg/dL (8-23); Carbon Dioxide 31 mmol/L (22-29); Chloride 102 mmol/L (98-107); Creatinine Clr Calc Pharmacy 42.0839; Globulin 2.6 g/dL (1.3-4.6); Glucose 229 mg/dL (65-115); Lactate Dehydrogenase 169 U/L (135-214); Osmolality Calculated 303 mOsm/kg (285-295); Potassium 4.2 mmol/L (3.5-5.1); Sodium 141 mmol/L (136-145); Total Bilirubin 0.3 mg/dL (0.15-1.2); Total Protein 6.8 g/dL (6.6-8.7)
[2023-12-18 12:09] LABS: Slide Review Slide Review Perform
== END 2024-01-13 23:59 | disposition home or self-care (01) ==
PROVIDERS: Nurse Practitioner Family; PCP Family Medicine; Visit Provider Internal Medicine Hematology & Oncology
DX: Z53.9 Procedure and treatment not carried out, unspecified reason; C91.10 Chronic lymphocytic leukemia of B-cell type not having achieved remission; Z79.899 Other long term (current) drug therapy
CPT/HCPCS: 36415; 80053; 83615; 85025; 99213

== ENCOUNTER → 2024-01-16 13:38 | Outpatient (BNVA) | payer MEDICARE, SELFPAY | PROVIDERS: PCP Family Medicine; Visit Provider Student in an Organized Health Care Education/Training Program | DX: M25.511 Pain in right shoulder (principal); M75.31 Calcific tendinitis of right shoulder | CPT/HCPCS: 99213 ==

== ENCOUNTER 2024-01-25 14:07 | Outpatient (RCR) | payer MEDICARE, SELFPAY | END 2024-02-13 23:59 | disposition home or self-care (01) | LOC: SPT 14:07 | PROVIDERS: Visit Provider Family Medicine | DX: T14.90XD Injury, unspecified, subsequent encounter (principal); W19.XXXD Unspecified fall, subsequent encounter | CPT/HCPCS: 97161 ==

== ENCOUNTER → 2024-01-30 10:41 | Outpatient (BNVA) | payer MEDICARE, SELFPAY | PROVIDERS: Visit Provider Podiatrist Foot & Ankle Surgery | DX: I73.9 Peripheral vascular disease, unspecified (principal); L60.3 Nail dystrophy; E11.42 Type 2 diabetes mellitus with diabetic polyneuropathy; L84 Corns and callosities; M21.41 Flat foot [pes planus] (acquired), right foot; M21.42 Flat foot [pes planus] (acquired), left foot; M21.611 Bunion of right foot; M21.612 Bunion of left foot | CPT/HCPCS: 11056; 11721 ==

== ENCOUNTER 2024-02-14 06:00 | Outpatient (RCR) | payer MEDICARE, SELFPAY | END 2024-02-22 23:59 | disposition home or self-care (01) | LOC: SPT 06:00 | PROVIDERS: Visit Provider Family Medicine | DX: T14.90XD Injury, unspecified, subsequent encounter (principal); W19.XXXD Unspecified fall, subsequent encounter | CPT/HCPCS: 97110; 97530 ==

== ENCOUNTER 2024-03-20 13:21 | Outpatient (RCR) | payer MEDICARE, SELFPAY | END 2024-04-12 23:59 | disposition home or self-care (01) | LOC: SOT 13:21 | PROVIDERS: Visit Provider Family Medicine | DX: M25.532 Pain in left wrist (principal) | CPT/HCPCS: 97022; 97110; 97140; 97165; 97530 ==

== ENCOUNTER 2024-04-13 06:30 | Outpatient (RCR) | payer MEDICARE, SELFPAY | END 2024-04-29 14:52 | disposition home or self-care (01) | LOC: SOT 06:30 | PROVIDERS: Visit Provider Family Medicine | DX: M25.532 Pain in left wrist (principal) | CPT/HCPCS: 97022; 97110 ==

== ENCOUNTER → 2024-04-30 10:12 | Outpatient (BNVA) | payer MEDICARE, SELFPAY | PROVIDERS: Visit Provider Podiatrist Foot & Ankle Surgery | DX: E11.42 Type 2 diabetes mellitus with diabetic polyneuropathy (principal); L60.3 Nail dystrophy; L84 Corns and callosities; I73.9 Peripheral vascular disease, unspecified; M21.41 Flat foot [pes planus] (acquired), right foot; M21.42 Flat foot [pes planus] (acquired), left foot; M21.611 Bunion of right foot; M21.612 Bunion of left foot | CPT/HCPCS: 11056; 11721 ==

== ENCOUNTER 2024-05-24 14:06 | Outpatient (CLI) | payer MEDICARE, SELFPAY ==
--- NOTE | 2024-05-24 14:09 | XR_ITS ---
WS: [id number] SCREENING DEXA SCAN [place] CLINICAL INFORMATION: ASYMPTOMATIC MENOPAUSAL STATE COMPARISON: 2022 FINDINGS: The L1-L4 bone mineral density measures 1.114 g/cm2. This corresponds to a T score score of -0.6 and Z score of 1.4. Left femoral neck bone mineral density measures 0.786 g/cm2. This corresponds to a T score of -1.8 and Z score of 0.6. Right femoral neck bone mineral density measures 0.774 g/cm2. This corresponds to a T score -1.9of and Z score of 0.5. Mean femoral neck bone mineral density measures 0.780 g/cm2. This corresponds to a T score of -1.8 and Z score of 0.6. XR/XR DEXA axial skeleton* [id number] IMPRESSION: Normal bone mineralization lumbar spine. Osteopenia femoral necks Patient's FRAX calculated 10 year probability for major osteoporotic fracture i s 29.0% and osteoporotic hip fracture is 10.2%. Bone mineral density lumbar spine increased 1.6% bone mineral density femoral necks decreased -4.8%
== END 2024-05-24 14:07 | disposition home or self-care (01) ==
PROVIDERS: PCP Family Medicine; Visit Provider Family Medicine
DX: Z78.0 Asymptomatic menopausal state (principal); M85.88 Other specified disorders of bone density and structure, other site
CPT/HCPCS: 77080

== ENCOUNTER 2024-06-04 09:51 | Outpatient (RCR) | payer MEDICARE, SELFPAY | END 2024-06-12 23:59 | disposition home or self-care (01) | LOC: SPT 09:51 | PROVIDERS: PCP Family Medicine; Visit Provider Nurse Practitioner Family | DX: R29.6 Repeated falls (principal); R26.89 Other abnormalities of gait and mobility; M19.90 Unspecified osteoarthritis, unspecified site | CPT/HCPCS: 97161 ==

== ENCOUNTER 2024-06-13 05:00 | Outpatient (RCR) | payer MEDICARE, SELFPAY | END 2024-07-05 09:05 | disposition home or self-care (01) | LOC: SPT 05:00 | PROVIDERS: PCP Family Medicine; Visit Provider Nurse Practitioner Family | DX: R29.6 Repeated falls (principal); M19.90 Unspecified osteoarthritis, unspecified site; R26.89 Other abnormalities of gait and mobility | CPT/HCPCS: 97110; 97112; 97164 ==

== ENCOUNTER 2024-06-17 11:37 | Oncology outpatient (recurring) (ONCR) | payer MEDICARE, SELFPAY ==
[2024-06-17 12:01] LABS: Basophils % 0.3 %; Eosinophils # 0.1 10^3/uL (0.0-0.8); Eosinophils % 0.6 %; Hematocrit 45.2 % (36-47); Lymphocytes # 5.7 10^3/uL (0.8-4.8); Lymphocytes % 59.1 %; Mean Corpuscular HGB Conc 32.7 g/dL (30-55); Mean Corpuscular Hemoglobin 30.3 pg (27-33); Mean Corpuscular Volume 92.6 fl (85-98); Mean Platelet Volume 10.1 fL (7.4-10.4); Monocytes # 0.6 10^3/uL (0.2-0.9); Monocytes % 6.5 %; Neutrophils # 3.23 10^3/uL (1.8-7.7); Neutrophils % 33.4 %; Nucleated Red Blood Cells % 0 %; Platelet Count 224 10^3/cmm (157-399); Red Blood Count 4.88 10^6/uL (3.85-5.65); Red Cell Distribution Width 13.2 % (12.1-15.1); White Blood Count 9.68 10^3/uL (3.29-11.43)
[2024-06-17 12:18] LABS: Alanine Aminotransferase 17 U/L (0-33); Albumin Level 4.1 g/dL (3.5-5.2); Alkaline Phosphatase 58 U/L (35-105); Anion Gap 13.1 (5-19); Aspartate Amino Transferase 15 U/L (0-32); Blood Urea Nitrogen 19 mg/dL (8-23); Calcium 9.2 mg/dL (8.5-10.5); Carbon Dioxide 29 mmol/L (22-29); Chloride 101 mmol/L (98-107); Creatinine Clr Calc Pharmacy 42.8069; Globulin 2.8 g/dL (1.3-4.6); Glucose 220 mg/dL (65-115); Lactate Dehydrogenase 132 U/L (135-214); Osmolality Calculated 297 mOsm/kg (285-295); Potassium 4.1 mmol/L (3.5-5.1); Sodium 139 mmol/L (136-145); Total Bilirubin 0.3 mg/dL (0.15-1.2); Total Protein 6.9 g/dL (6.6-8.7)
[2024-06-17 12:25] LABS: Slide Review Slide Review Perform
== END 2024-07-13 23:59 | disposition home or self-care (01) ==
PROVIDERS: Nurse Practitioner Family; PCP Family Medicine; Visit Provider Internal Medicine Hematology & Oncology
DX: Z53.9 Procedure and treatment not carried out, unspecified reason; C91.10 Chronic lymphocytic leukemia of B-cell type not having achieved remission; R03.0 Elevated blood-pressure reading, without diagnosis of hypertension
CPT/HCPCS: 36415; 80053; 83615; 85025; 99214

== ENCOUNTER → 2024-07-01 11:30 | Outpatient (BNVA) | payer MEDICARE, SELFPAY | PROVIDERS: PCP Family Medicine; Visit Provider Podiatrist Foot & Ankle Surgery | DX: E11.42 Type 2 diabetes mellitus with diabetic polyneuropathy (principal); L60.3 Nail dystrophy; L84 Corns and callosities; E11.8 Type 2 diabetes mellitus with unspecified complications; I73.9 Peripheral vascular disease, unspecified; M21.41 Flat foot [pes planus] (acquired), right foot; M21.42 Flat foot [pes planus] (acquired), left foot | CPT/HCPCS: 11056; 11721 ==

== ENCOUNTER → 2024-09-02 13:38 | Outpatient (BNVA) | payer MEDICARE, SELFPAY | PROVIDERS: PCP Family Medicine; Visit Provider Podiatrist Foot & Ankle Surgery | DX: E11.42 Type 2 diabetes mellitus with diabetic polyneuropathy (principal); L60.3 Nail dystrophy; L84 Corns and callosities; I73.9 Peripheral vascular disease, unspecified; E11.8 Type 2 diabetes mellitus with unspecified complications | CPT/HCPCS: 11056; 11721 ==

== ENCOUNTER 2024-10-09 11:54 | Observation (INO) | payer MEDICARE, SELFPAY ==
--- OUTSIDE RECORDS SUMMARY | 2003-02-12 19:00 | XMS_ITS | Continuity of Care Document ---
Author Name [facility] Address [address] [place] [address] Organization [facility] Care Team Providers Care Manager Photo Name Role Phone [facility] HIE Unavailable Unavailable Problems Problem Status Onset Date Problem Type Date of Resolution Comme nts Source Cervicalgia Active Diagnosis Allergies, Adverse Reactions, Alerts Substance Category Reaction Severity Reaction type Status Date Reported Comments Source penicillins Assertion Drug allergy Active [facility] sulfa drugs Assertion Drug allergy Active [facility] No Known Latex Allergy Assertion Allergy to substance Active [facility] Encounters Location Location Details Encounter Type Encounter Number Reason For Visit Attending Provider ADM Date DC Date Status Source [facility] [id number] [facility] [id number] [facility] [id number] [facility] DIAGNOSTIC TEST [id number] Neck and bilateral shoulder pain [place] [facility]
[2024-10-09] VITALS (15 sets, daily range): BP systolic 104–159; BP diastolic 48–88; PULSE 55–99; RESP 12–21; TEMP 36.4–36.7; O2SAT 94–100
--- OUTSIDE RECORDS SUMMARY | 2024-10-09 11:59 | XMS_ITS | Clinical Summary ---
Author Organization [facility] Address [address] [place]: Epic Prelude ADT MIKE HEDRICK [address] Care Team Providers Care Educational Institution Curator Name Role Phone Crystal Rayo Primary Care Provider Allergies Active Allergy Reactions Criticality Noted Date Comments Penicillin G Other (See Comments) 10/16/2008 Sulfa (Sulfonamide Antibiotics) Nausea and Vomiting,Delirium Medium 01/31/2014 Medications OneTouch Ultra Test Strip 1 Strip by See Admin Instructions route daily. 4 Active OneTouch Delica Plus Lancet 33 gauge by See Admin Instructions route daily. 4 Active aspirin (MIR CHEWABLE) 81 mg Tablet, Chewable Take 81 mg by mouth daily. Active glimepiride (AMARYL) 2 mg tablet Take 6 mg by mouth daily with breakfast. 5 Active lisinopriL (PRINIVIL) 10 mg tablet Take 10 mg by mouth daily. 5 Active alendronate (FOSAMAX) 70 mg tablet Take 70 mg by mouth every 7 days. 5 Active Dietary Supplement Capsule Take 1 Tablet by mouth daily. Bio-Fiber, Beta Sitosterol, Calcium Citrate + Magnesium, Ubiquinol, Resveratrol, Women's 50+ muti vitamin, Turmeric, Whitestone Lecithin, Berberine, Bavarian Herbal Bitters, Lutein, Bee Pollen, Green Lipped Mussel, L-Arginine, Alpha Lipoic acid, Spirulina, Milk Thistle, Marine Collagen peptides, Astragalus Root, Stillwater Jelly, Boswellia, True Cinnamon, Hyaluronic Acid Complex, Tart Juárez, Shilajit Extract Active Blood-Glucose MeterIndicatio ns:Type 2 diabetes mellitus without complication, without long-term current use of insulin ([facility]/HCC) Use to check blood sugar daily as needed 1 Each 5 Active blood sugar diagnostic StripIndicatio ns:Type 2 diabetes mellitus without complication, without long-term current use of insulin (CMS/HCC) Use to check blood sugar daily as needed 100 Each 3 5 Active alcohol Pads, MedicatedIndic ations:Type 2 diabetes mellitus without complication, without long-term current use of insulin (CMS/HCC) Use daily to monitor blood sugar level. 100 Each 3 5 Active lancetsIndicat ions:Type 2 diabetes mellitus without complication, without long-term current use of insulin ([facility]) Use to check blood sugar daily as needed 100 Each 3 5 Active amLODIPine (NORVASC) 5 mg tablet Take 1 Tablet (5 mg) by mouth daily. 30 Tablet 2 5 Active amLODIPine (NORVASC) 5 mg tablet Take 5 mg by mouth daily. 5 025 Discontin ued(Reord er) Active Problems Problem Noted Date Diagnosed Date Spondylolisthesis at L4-L5 level 06/25/2024 Lumbosacral spondylosis without myelopathy 06/25 Lumbar facet arthropathy 06/25/2024 Lumbar radiculitis 06/25/2024 Falling 06/25/2024 Overview (06/25/2024): x5 since November 2023 Discogenic low back pain 06/25/2024 Degeneration of intervertebr al disc of lumbosacral region with discogenic back pain and lower extremity pain 06/25/2024 Neuroforaminal stenosis of lumbar spine 06/26/19 25 Cervical spondylosis without myelopathy 06/26/19 25 DDD (degenerative disc disease), cervical 2024 Rotator cuff arthropathy of both shoulders 06/25 Chronic pain of both shoulders 06/07/2024 Mid back pain, chronic 06/07/2024 Chronic bilateral low back pain without sciatica 06/07/2024 Mixed hyperlipidemia 05/22/2024 SHARYN (obstructive sleep apnea) 05/22/2024 Age-related osteoporosis wit hout current pathological fracture 05/22/2024 Chronic osteoarthritis 05/22/2024 History of stroke without residual deficits 10/2024 Imbalance 05/22/2024 Frequent falls 05/22/2024 History of basal cell carcinoma (BCC) of skin Chest pain with moderate risk of acute coronary syndrome 08/22/2022 Essential hypertension 08/22/2022 Type 2 diabetes mellitus wit hout complication, without long-term current use of insulin 08/22/2022 Drusen (degenerative) of retina 06/29/2015 Encounters Date Type Department Care Team Description 10/01/2024 Orders Only [facility] [address] [place] [address] Yue Enriquez FNP Screening for skin cancer (Primary Dx) 09/19/2024 Orders Only [facility] [address] [place] [address] May, PANTOGRAPH I ENGRAVER 09/19/2024 Refill [facility] [address] [place] [address] May, PANTOGRAPH I ENGRAVER 09/18/2024 Refill [facility] [address] [place] [address] Yue Enriquez FNP 09/18/2024 External Device Data STL ABSTRACTION Provider, Abstract 09/03/2024 Telephone [facility] Outpatient Services [place] [address] [place] [address] Yue Enriuqez FNP Requesting Sooner Appointment 08/29/2024 Telephone [facility] Outpatient Services [place] [address] [facility] [address] [place] [address] Yue Enriquez FNP Requesting Sooner Appointment 08/28/2024 External Device Data STL ABSTRACTION Provider, Abstract 08/27/2024 12:40 PM CDT Office Visit [facility] [address] [place] [facility] [place] [address] Yue Enriquez, [place] DDD (degenerative disc disease), thoracolumbar (Primary Dx); DDD (degenerative disc disease), cervical; Essential hypertension; Type 2 diabetes mellitus without complication, without long-term current use of insulin ([facility]); Age-related osteoporosis without current pathological fracture 08/27/2024 External Device Data STL ABSTRACTION Provider, Abstract 07/30/2024 External Device Data STL ABSTRACTION Provider, Abstract 07/25/2024 Orders Only [facility] Pain Management [place] [address] [place] [address] John Carrasquillo MD Lumbar radiculitis (Primary Dx); Lumbosacral spondylosis without myelopathy; Neuroforaminal stenosis of lumbar spine; Degeneration of intervertebral disc of lumbosacral region with discogenic back pain and lower extremity pain 07/18/2024 7:13 AM CDT - 07/18/2024 11:59 PM CDT Hospital Encounter [facility] MRI [place] [address] [place] [address] John Carrasquillo MD Discharge Disposition: Home or Self Care from Last 3 Months Immunizations Immunization Administration Dates Next Due (TDVAX)(7 YRS UP) TETANUS AN D DIPHTHERIA TOXOIDS, ADSORBED (2 LF OF TETANUS TOXOID AND 2 LF OF DIPHTHERIA TOXOID), 0.5ML (PF), IM 05/24/2000 Influenza Vaccine High Dose 65+ Yrs IM 9 Pneumococcal 13-cooper Conj Vacc Patient Supplied 1 Family History Medical History Relation Name Comments Heart Disease Maternal Grandfather Stroke Mother Heart Disease Paternal Grandfather Relation Name Status Comments Maternal Grandfather Mother Paternal Grandfather Social History Tobacco Use Types Packs/Day Years Used Date Smoking Tobacco: Never Passive Smoke Exposure: Never Smokeless Tobacco: Never Tobacco Cessation:Counseling Given: No Alcohol Use Standard Drinks/Week Comments No 0 (1 standard drink = 0.6 oz pur e alcohol) Feeling Safe Answer Date Recorded Are you in a relationship wi th someone who hurts you emotionally and/or physically? 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 Gender Identity Not on file Sexual Orientation Not on file Last Filed Vital Signs Vital Sign Reading Time Taken Comments Blood Pressure 155/82 09/16/2024 12:14 PM CDT Pulse 59 09/16/2024 12:14 PM CDT Temperature 36.4 C (97.6 F) 08/27/2024 12:58 PM CDT Respiratory Rate 16 09/16/2024 12:14 PM CDT Oxygen Saturation 96% 09/16/2024 12:14 PM CDT Inhaled Oxygen Concentration - - Weight 62.4 kg (137 lb 9.6 oz) 08/27/2024 12:58 PM CDT Height 156.2 cm (5' 1.5 ) 08/27/2024 12:58 PM CD T Body Mass Index 25.58 08/27/2024 12:58 PM CDT Plan of Treatment Upcoming Encounters Date Type Department Care Team (Late st Contact Info) Description 10/15/2024 2:40 PM CDT Office Visit [facility] [address] [place] [phone] Michael Ross PA [address] [place] [address] 11/21/2024 1:00 PM CDT Office Visit [facility] Family Medicine [place] [address] [place] [address] Crystal Rayo, DO [address] [place] [address] 12/05/2024 1:00 PM CDT Appointment [facility] Neurology [facility] [address] [place] [address] Bishnu Poe MD [address] [place] [phone] 02/21/2025 10:20 AM BAKERY ASSOCIATE Office Visit [facility] Medicine [place] [address] [place] [address] Zoltan Enriquezhueyesha Kaplan, [facility] [address] [place] [address] 02/28/2025 11:00 AM BAKERY ASSOCIATE Telemed [facility] Telemedicine - [place] [address] [place] [address] Bisi Foster MD [address] [place] [address] Health Maintenance Due Date Last Done Comments DIABETES ANNUAL FOOT EXAM 11/10/1953 DIABETES MICROALBUMIN ANNUAL SCREEN 11/10/1955 ZOSTER VACCINE (1 of 2) 11/10/1987 DTAP/TDAP/TD VACCINES (1 - Tdap) 05/25/2000 05/25/19 01 RSV VACCINE (60+ or ) (1 - 1-dose 75+ series) 2012 DIABETES ANNUAL RETINAL EXAM 06/28/2016, 06/29/2015, 06/29/2015, Additional history exists PNEUMOCOCCAL VACCINE 50+ YEA RS (2 of 2 - PPSV23, PCV20, or PCV21) 01/17/2019 11/22/2018 [facility] uACR (Auto Order) 02/14/2024 07/19/2022 Medicare [place] ([place]) Preventative Visit/Annual Wellness Visit 02/14/2024 COVID-19 Vaccine (2023-2 5 season) 2024 11/17/2023, 01/17/2023, 11/05/2021, Additional history exists DIABETES: A1C (Auto Order) 09/06/2024 06/07/2024, INFLUENZA VACCINE (#1) 2024 5, 01/17/2023, 11/05/2021, Additional history exists DIABETES HBA1C Q 6 MONTHS 12/07/2024 06/07/2024, LDL CHOLESTEROL ANNUAL 06/07/2025 06/07/2024, 2022 OSTEOPOROSIS SCREENING 06/10/2029 06/10/2024 [facility] eGFR (Auto Order) Completed 06/07/2024 , 08/28/2023, 06/20/2023, Additional history exists Procedures Procedure Name Priority Date/Time Associated Diagnosis Comments MRI LUMBAR WO CONTRAST Routine 07/18/2024 8:30 AM CDT Spondylolisthesis at L4-L5 level Lumbosacral spondylosis without myelopathy Lumbar facet arthropathy Lumbar radiculitis Falling Discogenic low back pain Degeneration of intervertebral disc of lumbosacral region with discogenic back pain and lower extremity pain Neuroforaminal stenosis of lumbar spine Spinal stenosis of lumbar region with neurogenic claudication XR DEXA BONE DENSITY AXIAL 1 OR MORE SITES Routine 06/10/2024 3:30 PM CDT Age-related osteoporosis without current pathological fracture Asymptomatic postmenopausal status COMPREHENSIVE METABOLIC PANEL Routine 06/07/2024 1:42 PM CDT Type 2 diabetes mellitus without complication, without long-term current use of insulin ([facility]) Essential hypertension LIPID PANEL Routine 06/07/2024 1:42 PM CDT Type 2 diabetes mellitus without complication, without long-term current use of insulin ([facility]) Essential hypertension HEMOGLOBIN A1C Routine 06/07/2024 1:42 PM CDT Type 2 diabetes mellitus without complication, without long-term current use of insulin (CMS/HCC) OPHTHALMIC DIAGNOSTIC IMAGE RETINA DAMIAN Routine 06/29/2015 3:24 PM CDT Nonexudative age-related macular degeneration from Last 3 Months or Most Recently Relevant to Health Maintenance Results * MRI LUMBAR WO CONTRAST (07/18/2024 8:30 AM CDT) Anatomical Region Laterality Modality Spine Magnetic Resonan ce 07/18/2024 8:51 AM CDT Impressions 07/18/2024 4:13 PM CDT IMPRESSION: Please see below. MRI Lumbar Spine Without Contrast Date: 07/18/2024 8:30 AM Reason For Exam: Spinal stenosis, lumbar. Diagnosis: Spondylolisthesis at L4-L5 level; Lumbosacral spondylosis without myelopathy; Lumbar facet arthropathy; Lumbar radiculitis; Falling; Discogenic low back pain; Degeneration of intervertebral disc of lumbosacral region with discogenic back pain and lower extremity pain; Neuroforaminal stenosis of lumbar spine; Spinal stenosis of lumbar region with neurogenic claudication. Technique: Multiplanar, multisequence MR images were obtained through the lumbar spine without contrast. Comparison: None FINDINGS: Lumbar alignment shows a slight S-type scoliosis. Also low-grade degenerative anterolisthesis L4-5. Mild to moderate disc degeneration, greatest distally. Mild spondylosis. Active inflammatory mid distal facet and interspinous arthropathy. Minor Modic type I edema type discogenic marrow endplate changes distally. No compression fracture. Conus normal. L1-2, mild annular bulging without stenosis. L2-3, mild annular bulging with mild left-sided subarticular and bilateral foraminal narrowing. L3-4, mild annular bulging with mild facet arthropathy and flavum thickening. Mild bilateral subarticular and neuroforaminal narrowing. L4-5, moderate spondylotic disc bulging with prominent facet arthropathy and flavum thickening. Moderate to severe bilateral subarticular narrowing and moderate right foraminal narrowing. L5-S1, moderate spondylotic disc bulging with facet ankylosis. Mild bilateral subarticular and foraminal narrowing. IMPRESSION: [id number] lumbar disc degeneration, greatest distally. Prominent facet arthropathy L4-5 with low-grade degenerative anterolisthesis. Moderate to severe bilateral subarticular and moderate right-sided foraminal narrowing at this level. Narrative Procedure Note Will Watson DO - 07/18/2024 IMPRESSION: Please see below. MRI Lumbar Spine Without Contrast Date: 07/18/2024 8:30 AM Reason For Exam: Spinal stenosis, lumbar. Diagnosis: Spondylolisthesis at L4-L5 level; Lumbosacral spondylosis without myelopathy; Lumbar facet arthropathy; Lumbar radiculitis; Falling; Discogenic low back pain; Degeneration of intervertebral disc of lumbosacral region with discogenic back pain and lower extremity pain; Neuroforaminal stenosis of lumbar spine; Spinal stenosis of lumbar region with neurogenic claudication. Technique: Multiplanar, multisequence MR images were obtained through the lumbar spine without contrast. Comparison: None FINDINGS: Lumbar alignment shows a slight S-type scoliosis. Also low-grade degenerative anterolisthesis L4-5. Mild to moderate disc degeneration, greatest distally. Mild spondylosis. Active inflammatory mid distal facet and interspinous arthropathy. Minor Modic type I edema type discogenic marrow endplate changes distally. No compression fracture. Conus normal. L1-2, mild annular bulging without stenosis. L2-3, mild annular bulging with mild left-sided subarticular and bilateral foraminal narrowing. L3-4, mild annular bulging with mild facet arthropathy and flavum thickening. Mild bilateral subarticular and neuroforaminal narrowing. L4-5, moderate spondylotic disc bulging with prominent facet arthropathy and flavum thickening. Moderate to severe bilateral subarticular narrowing and moderate right foraminal narrowing. L5-S1, moderate spondylotic disc bulging with facet ankylosis. Mild bilateral subarticular and foraminal narrowing. IMPRESSION: [id number] lumbar disc degeneration, greatest distally. Prominent facet arthropathy L4-5 with low-grade degenerative anterolisthesis. Moderate to severe bilateral subarticular and moderate right-sided foraminal narrowing at this level. us John Carrasquillo MD MR ORDERABLES Final Resu lt * (ABNORMAL) XR DEXA BONE DENSITY AXIAL 1 OR MORE SITES (06/10/2024 3:30 PM CDT) [facility] [address] T-SCORE HIP (LEFT) -1.10(A) -1.0 - 1.0 INTERFACE SYSTEM T-SCORE SPINE -0.50 -1.0 - 1.0 INTER FACE SYSTEM Anatomical Region Laterality Modality Digital Radiogra phy, Mammography 06/10/2024 3:30 PM CDT Impressions 06/10/2024 3:47 PM CDT IMPRESSION: Bone mineral density values fall within the osteopenic range as above. NOF guidelines recommend consideration of FDA-approved medical therapies in patients with FRAX determined 10-year probabilities of hip/major osteoporosis-related fractures equal or greater than 3%/20% respectively. Consider assessing fracture risk using the FRAX analysis tool for guidance of clinical management available online at www.shef.ac.uk/FRAX/. [employer] for Select DXA and the Femoral Neck BMD value. Narrative 06/10/2024 3:47 PM CDT DEXA Evaluation of the Lumbar Spine and Left Proximal Femur Reason For Exam: See Diagnosis. Evaluation of bone mineral density. Diagnosis: Age-related osteoporosis without current pathological fracture; Asymptomatic postmenopausal status. The following absorptiometry data were obtained. The quality of this examination is acceptable with regards to count density, processed images, data display and lack of important artifacts (including but not limited to motion and attenuation artifacts). Serial examination number 1. L1-L4 BMD (g/cm2): 0.989 Adult T-score: -0.5 LEFT FEMORAL NECK BMD (g/cm2): 0.578 Adult T-score: -2.4 LEFT TOTAL HIP BMD (g/cm2): 0.805 Adult T-score: -1.1 Procedure Note Dominguez Bentley MD - 06/10/2024 DEXA Evaluation of the Lumbar Spine and Left Proximal Femur Reason For Exam: See Diagnosis. Evaluation of bone mineral density. Diagnosis: Age-related osteoporosis without current pathological fracture; Asymptomatic postmenopausal status. The following absorptiometry data were obtained. The quality of this examination is acceptable with regards to count density, processed images, data display and lack of important artifacts (including but not limited to motion and attenuation artifacts). Serial examination number 1. L1-L4 BMD (g/cm2): 0.989 Adult T-score: -0.5 LEFT FEMORAL NECK BMD (g/cm2): 0.578 Adult T-score: -2.4 LEFT TOTAL HIP BMD (g/cm2): 0.805 Adult T-score: -1.1 IMPRESSION: Bone mineral density values fall within the osteopenic range as above. NOF guidelines recommend consideration of FDA-approved medical therapies in patients with FRAX determined 10-year probabilities of hip/major osteoporosis-related fractures equal or greater than 3%/20% respectively. Consider assessing fracture risk using the FRAX analysis tool for guidance of clinical management available online at www.shef.ac.uk/FRAX/. [employer] for Select DXA and the Femoral Neck BMD value. Yue Enriquez [facility] DIAGNOSTIC IMAGING ORDERAB LES Final Result * (ABNORMAL) HEMOGLOBIN A1C (06/07/2024 1:42 PM CDT) HEMOGLOBIN A1C 8.8(H) <5.7 % [facility] Comment: For someone without known diabetes, a hemoglobin A1c value of 6.5% or greater indicates that they may have diabetes and this should be confirmed with a follow-up test. For someone with known diabetes, a value <7% indicates that their diabetes is well controlled and a value greater than or equal to 7% indicates suboptimal control. A1c targets should be individualized based on duration of diabetes, age, comorbid conditions, and other considerations. Currently, no consensus exists regarding use of hemoglobin A1c for diagnosis of diabetes for children. ESTIMATED AVERAGE GLUCOSE (MG/DL) 206 mg/dL [facility] ESTIMATED AVERAGE GLUCOSE (MMOL/L) 11.4 mmol/L [facility] Comment: Test Performed at: [facility] [address] [facility] [place] [id number] Dorina Saha MD Blood 06/07/2024 1:42 PM CDT 06/08/2024 1:47 AM CDT Yeu Enriquez [facility] CHEMISTRY ORDERABLES Final Result [facility] [phone] [facility] [employer] [address] [facility] [address] * (ABNORMAL) LIPID PANEL (06/07/2024 1:42 PM CDT) Pathologist [facility] CHOLESTEROL 187 <200 mg/dL [facility] HDL 45(L) > OR = 50 mg/dL [facility] TRIGLYCERIDE 207(H) <150 mg/dL [facility] Comment: If a non-fasting specimen was collected, consider repeat triglyceride testing on a fasting specimen if clinically indicated. Cesar et al. J. of Clin. Lipidol. 2015;9:129-169. LDL CALCULATED 110(H) mg/dL (calc) [facility] Comment: Reference range: <100 Desirable range <100 mg/dL for primary prevention; <70 mg/dL for patients with CHD or diabetic patients with > or = 2 CHD risk factors. LDL-C is now calculated using the Janusz-Medel calculation, which is a validated novel method providing better accuracy than the Friedewald equation in the estimation of LDL-C. Janusz SS et al. SANCHO. 2013;310(19): 5476-5925 (http://education.[employer]/faq/WGQ176) CHOL/HDL RATIO 4.2 <5.0 (calc) [facility] NON-HDL CHOLESTEROL 142(H) <130 mg/dL (calc) [facility] Comment: For patients with diabetes plus 1 major ASCVD risk factor, treating to a non-HDL-C goal of <100 mg/dL (LDL-C of <70 mg/dL) is considered a therapeutic option. Test Performed at: [facility] [address] [place] [address] Dorina Saha MD Blood 06/07/2024 1:42 PM CDT 06/08/2024 1:47 AM CDT Yue Enriquez PANTOGRAPH I ENGRAVER CHEMISTRY ORDERABLES Final Result [facility] [phone] [facility] [address] [place] [address] * (ABNORMAL) COMPREHENSIVE METABOLIC PANEL (06/07/2024 1:42 PM CDT) GLUCOSE 307(H) 65 - 99 mg/dL [facility] Comment: Fasting reference interval For someone without known diabetes, a glucose value >125 mg/dL indicates that they may have diabetes and this should be confirmed with a follow-up test. BUN 21 7 - 25 mg/dL [facility] CREATININE 0.95 0.60 - 0.95 mg/dL [facility] GFR 58(L) > OR = 60 mL/min/1. 73m2 [facility] BUN/CREAT RATIO SEE NOTE: 6 - 22 (calc) [facility] Comment: Not Reported: BUN and Creatinine are within reference range. SODIUM 140 135 - 146 mmol/L [facility] POTASSIUM 4.2 3.5 - 5.3 mmol/L [facility] CHLORIDE 101 98 - 110 mmol/L [facility] CO2 29 20 - 32 mmol/L [facility] CALCIUM 10.1 8.6 - 10.4 mg/dL [facility] TOTAL PROTEIN 6.4 6.1 - 8.1 g/dL [facility] ALBUMIN 4.2 3.6 - 5.1 g/dL [facility] GLOBULIN 2.2 1.9 - 3.7 g/dL (calc) [facility] ALBUMIN/GLOBULIN RATIO 1.9 1.0 - 2.5 (calc) [facility] BILIRUBIN TOTAL 0.5 0.2 - 1.2 mg/dL [facility] ALKALINE PHOSPHATASE 49 37 - 153 U/L [facility] AST 14 10 - 35 U/L [facility] ALT 14 6 - 29 U/L [facility] Comment: Test Performed at: [employer] [id number] [place] [address] Dorina Saha MD Blood 06/07/2024 1:42 PM CDT 06/08/2024 1:47 AM CDT Yue Enriquez PANTOGRAPH I ENGRAVER CHEMISTRY ORDERABLES Final Result [facility] [phone] [employer] [address] [place] [address] * OPHTHALMIC DIAGNOSTIC IMAGE RETINA DAMIAN (06/29/2015 3:24 PM CDT) Narrative INTERFACE SYSTEM - 06/29/2015 3:24 PM CDT Paras Raymond MD 06/29/2015 3:24 PM Optical Coherence Tomography: Right Eye: There is mild irregularity of the retinal pigment epithelium. A good foveal depression is present. No evidence of retinal edema, subretinal fluid, or sub-Retinal pigment epithelium fluid. Otherwise normal. Left Eye: There is mild irregularity of the retinal pigment epithelium. A good foveal depression is present. No evidence of retinal edema, subretinal fluid, or sub-Retinal pigment epithelium fluid. Otherwise normal. Procedure Note Conversion, Auto Data - 05/19/2021 Paras Raymond MD 06/29/2015 3:24 PM Optical Coherence Tomography: Right Eye: There is mild irregularity of the retinal pigment epithelium. A good foveal depression is present. No evidence of retinal edema, subretinal fluid, or sub-Retinal pigment epithelium fluid. Otherwise normal. Left Eye: There is mild irregularity of the retinal pigment epithelium. A good foveal depression is present. No evidence of retinal edema, subretinal fluid, or sub-Retinal pigment epithelium fluid. Otherwise normal. Paras Raymond MD [facility] OTHER Final Result INTERFACE SYSTEM Refer to clinic/hospital department from Last 3 Months or Most Recently Relevant to Health Maintenance Insurance [facility] [employer] HMO Advance Directives For more information, please contact: [phone] * Full Code (Latest Code Status on File) Date Activated Date Inactivated Comments 08/22/2022 4:33 PM 08/23/2022 5:12 PM Care Teams Educational Institution Curator Relationship Specialty Start Date End Date Crystal Rayo DO [address] [place] [id number] PCP - General Family Practice 05/22/24
--- OUTSIDE RECORDS SUMMARY | 2024-10-09 11:59 | XMS_ITS | Clinical Summary ---
Author Organization [facility] Address [address] [place] [address] Care Team Providers Care Medium Cycle Salesperson Name Role Phone Annie Myles MD Primary Care Provider [phone]- [phone] Allergies Active Allergy Reactions Criticality Noted Date Comments Penicillin G Other (See Comments) 10/16/2008 Sulfa (Sulfonamide Antibiotics) Nausea and Vomiting,Delirium Medium 01/31/2014 Medications LISINOPRIL ORALIndications: Biceps tendon tear, left, initial encounter Take by mouth. Active traMADol (ULTRAM) 50 mg tabletIndication s:Left shoulder pain Take 1 Tab by mouth every 6 hours as needed for Pain or Pain, Moderate. 60 Tab 0 02/17/2014 Active lisinopril (PRINIVIL) 5 mg tablet 02/12/2014 Active CALCIUM ORAL Take by mouth daily. 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 Gender Identity Not on file Sexual Orientation Not on file Occupation Industry Job Start Date Job End Date Not on file Not on file Not on file Not on file Last Filed Vital Signs Vital Sign Reading Time Taken Comments Blood Pressure 139/76 12/13/2019 10:37 AM CDT Pulse 67 12/13/2019 10:37 AM CDT Temperature 36.2 C (97.2 F) 12/13/2019 10:37 AM CDT Respiratory Rate 20 12/13/2019 10:3 7 AM CDT Oxygen Saturation 98% 12/13/2019 10: 37 AM CDT Inhaled Oxygen Concentration - - Weight 63.9 kg (140 lb 12.8 oz) 020 10:37 AM CDT Height 154.9 cm (5' 1 ) 12/13/2019 10:3 7 AM CDT Body Mass Index 26.6 12/13/2019 10:37 AM CDT Plan of Treatment Health Maintenance Due Date Last Done Comments ZOSTER VACCINE (1 of 2) 11/10/1987 DTAP/TDAP/TD VACCINES (1 - Tdap) 05/25/2000 05/25/19 OSTEOPOROSIS SCREENING 2002 RSV VACCINE (60+ or ) (1 - 1-dose 75+ series) 2012 PNEUMOCOCCAL VACCINE 50+ YEA RS (2 of 2 - PCV20 or PCV21) 11/23/2019 11/22/2018 INFLUENZA VACCINE (#1) 2024 10/17/2018 Insurance [facility] Care Teams Medium Cycle Salesperson Relationship Specialty Start Date End Date Annie Myles MD [address] [place] [id number] PCP - General Family Practice 02/10/14
--- NOTE | 2024-10-09 12:04 | CT_ITS ---
WS: [id number] CT HEAD TECHNIQUE: Noncontrast CT of the head obtained from the skullbase to the vertex. CLINICAL INFORMATION: Symptoms of acute stroke COMPARISON: 2019 DLP: [address] scans at [facility] use at least one of these dose optimization techniques: automated exposure control; mA and/or kV adjustment per patient size (includes targeted exams where dose is matched to clinical indication); or iterative reconstruction. FINDINGS: No evidence of intracranial hemorrhage or mass effect. Ventricular system and basal cisterns are patent. Moderate small vessel changes with moderate parenchymal volume loss. Chronic lacunar infarct LEFT lateral thalamus unchanged since 2019. Vascular calcification. Paranasal sinuses and mastoid air cells are well aerated. .Normal visualized soft tissues. CT/CT head thrombolytic 28064 IMPRESSION: 1. No evidence of intracranial hemorrhage or mass effect. 2. No acute intracranial findings. Notified Vickie Gloria MD at 10/09/2024 12:27 PM.
--- NOTE | 2024-10-09 12:08 | ED_ITS ---
HPI - Neuro Symptoms/Deficit 2 General: Chief Complaint: Neuro Symptoms/Deficit Stated Complaint: stroke liek symptoms Time Seen by Provider: 10/09/24 12:04 History of Present Illness: 88-year-old female with a history of pos sible previous stroke, CLL, diabetes, hypertension who presents to the emergency room with neurologic symptoms. Last known well time was 30 minutes ago. They were out shopping and she suddenly became very weak and lightheaded. reports her speech was slurred. On arrival here she does appear quite weak but is able to get to the bed with assistance and shows no localizing deficits. She is now speaking and answering questions appropriately but appears somewhat somnolent. Does not want to open her eyes but she can ask good visual fong and no vision loss. No facial droop. No drift on exam. Related Data Home Medications ?Medication ?Instructions ?Recorded ?Confirmed aspirin 81 mg tablet,delayed 81 mg PO DAILY 08/03/22 0 10/09/24 release amlodipine 5 mg tablet 5 mg PO DAILY 11/07/2210/09 blood sugar diagnostic ([employer] [place] #10 ea 11/07/2210/09 Ultra Test strips) glimepiride 2 mg tablet 2 mg PO DAILY 11/07/2210/09 lancets 33 gauge (Cardax [employer]armaTouch Delica #100 ea 11/07/22 Plus Lancet) lisinopril 10 mg tablet 10 mg PO DAILY 11/07/2209/14 alendronate 70 mg tablet 70 mg PO Q7D 06/17/24 Previous Rx's ?Medication ?Instructions ?Recorded Bilateral [facility] Joint Brace #1 ea 07/14/23 Diabetic Shoes with 3 Inserts #1 ea 01/30/24 Allergies Allergy/AdvReac Type Severity Reaction Status Date / Time Penicillins Allergy Unknown Verified 09/02/24 13:29 Sulfa (Sulfonamide Allergy ADR-Confusi Verified 09/02/24 13:29 Antibiotics) on Review of Systems 2 Narrative: Constitutional symptoms: Negative except as documented in HPI. Skin symptoms: Negative except as documented in HPI. Eye symptoms: Negative except as documented in HPI. ENMT symptoms: Negative except as documented in HPI. Respiratory symptoms: Negative except as documented in HPI. Cardiovascular symptoms: Negative except as documented in HPI. Gastrointestinal symptoms: Negative except as documented in HPI. Genitourinary symptoms: Negative except as documented in HPI. Musculoskeletal symptoms: Negative except as documented in HPI. Neurologic symptoms: Negative except as documented in HPI. Psychiatric symptoms: Negative except as documented in HPI. Endocrine symptoms: Negative except as documented in HPI. PFSH ED 2 PFSH: Medical History (Updated 10/09/24 @ 14:10 by Vickie Gloria MD) Lymphocytosis History of skin cancer Family History Other Anesthesia complication CAD (coronary artery disease) Stroke Denies family history of Diabetes Clotting disorder Dementia Hyperlipidemia Psychiatric illness Chronic kidney disease (CKD) Suicide Bleeding disorder Lung disease Cancer Hypertension Social History Smoking and tobacco/nicotine status: never used tobacco/nicotine Physical Exam 2 Narrative: EXAM NARRATIVE: General: Patient appears quite weak and shaky. Skin: Warm, dry. Head: Normocephalic, atraumatic. Neck: Supple, trachea midline. Eye: Extraocular movements are intact. Ears, nose, mouth and throat: mucosa moist. Cardiovascular: Regular, Normal peripheral perfusion. Respiratory: Lungs are clear to auscultation, respirations are non-labored, breath sounds are equal, Symmetrical chest wall expansion. Gastrointestinal: Soft, Nontender, Non distended Musculoskeletal: Normal ROM, no deformity. Neurological: oriented, No focal neurological deficit observed. Psychiatric: Cooperative, appropriate mood & affect. Course 2 Vital Signs: Vital signs: Vital Signs Temperature 98.0 F 10/09/24 12:07 Pulse Rate 61 10/09/24 14:18 Respiratory Rate 15 10/09/24 14:18 Blood Pressure 148/48 10/09/24 14:18 Pulse Oximetry 99 10/09/24 14:18 Oxygen Delivery Me thod Room Air 10/09/24 14:09 MDM - Neuro Symptoms/Deficit Medical Decision Making Medical decision making: Differential diagnosis for patient with focal neurologic deficit(s) includes but not limited to and based on the above HPI, review of systems and physical exam: ischemic stroke, hemorrhagic stroke and embolic stroke secondary to atrial fibrillation), TIA, Contreras's palsey, metabolic encephalopathy with previous stroke. Orders placed to evaluate differential diagnosis based on the above differential, HPI and physical exam Initial exam at 12:03 AM Time 1207. NIH Stroke Scale/Score (NIHSS) from [email or web address] on 10/09/2024 All calculations should be rechecked by clinician prior to use RESULT SUMMARY: 0 points NIH Stroke Scale INPUTS: 1A: Level of consciousness ?> 0 = Alert; keenly responsive 1B: Ask month and age ?> 0 = Both questions right 1C: 'Blink eyes' & 'squeeze hands' ?> 0 = Performs both tasks 2: Horizontal extraocular movements ?> 0 = Normal 3: Visual fong ?> 0 = No visual loss 4: Facial palsy ?> 0 = Normal symmetry 5A: Left arm motor drift ?> 0 = No drift for 10 seconds 5B: Right arm motor drift ?> 0 = No drift for 10 seconds 6A: Left leg motor drift ?> 0 = No drift for 5 seconds 6B: Right leg motor drift ?> 0 = No drift for 5 seconds 7: Limb Ataxia ?> 0 = No ataxia 8: Sensation ?> 0 = Normal; no sensory loss 9: Language/aphasia ?> 0 = Normal; no aphasia 10: Dysarthria ?> 0 = Normal 11: Extinction/inattention ?> 0 = No abnormality Consultation: 12:10 AM. I spoke to Dr. Shook with neurology [facility] immediately after my exam and she agrees that standard workup should be done also infectious workup and she will see the patient in the emergency room. No indication for acute administration of TNKase. CT head: No acute intracranial process. no intracranial hemorrhage, no evidence of infarct. no evidence of acute fracture.This was reviewed and interpreted by myself the ER physician. EKG: Time 1215. Rate 58. Sinus bradycardia. Nonspecific T wave changes, right bundle branch block, left anterior fascicular block. This was reviewed and interpreted by myself the ER physician at 12:20. No significant changes from EKG done in 2022. Reexamination: Shortly after my exam nursing retail event coordinator had done an exam as well and at that point she had some weakness in her right arm with some weakness in her right leg as well. When I went back this had improved just a few minutes later. Consultation: I spoke again with Dr. Shook and requested another exam. On her exam the patient seems to have resolved completely. She is able to stand up and has good coordination and no visual deficits. No speech deficits. She recommends a CTA and admission for observation overnight. She has concern that this may have been a brainstem infarction. Lab Review: Laboratory results were reviewed and interpreted by myself the emergency room physician. No leukocytosis. No anemia. No renal failure. No urinary tract infection. Drug screen is negative. I reviewed the patient's medical record. 88-year-old female with a history of possible previous stroke, CLL, diabetes, hypertension Reexamination: Patient seems much more spry and aware now. No focal motor deficits at this point. Final reexamination at 1400. No increased work of breathing. Consultation: I spoke with Dr. Seth who is on-call for the hospitalist service who agrees to admission. Assessment and plan: Possible transient ischemic attack ?Admission for observation and possible medication optimization for stroke prevention. -I discussed the patient with the hospitalist on-call who is admitting the patient. - Discussed findings and plan with patient. Answered any questions. - All laboratory values were reviewed and interpreted personally by myself, the ER physician - All imaging was reviewed and interpreted personally by myself, the ER physician. - Evaluation and treatment of this problem were appropriate in the emergency setting Lab Data 10/09/24 12:18 10/09/24 12:[address] 10/09/24 12:04 IMPRESSION: 1. No evidence of intracranial hemorrhage or mass effect. 2. No acute intracranial findings. Notified Vickie Gloria MD at 10/09/2024 12:27 PM. Laboratory Results WBC 9.72 10^3/uL (3.29-11.43) 10/09/24 12:18 RBC 4.70 10^6/uL (3.85-5.65) 10/09/24 12:18 Hgb 14.30 g/dL (11.27-16.99) 10/09/24 12:18 Hct 43.2 % (36-47) 10/09/24 12:18 MCV 91.9 fl (85-98) 10/09/24 12:18 MCH 30.4 pg (27-33) 10/09/24 12:18 MCHC 33.1 g/dL (30-55) 10/09/24 12:18 RDW 13.3 % (12.1-15.1) 10/09/24 12:18 Plt Count 201 10^3/cmm (157-399) 10/09/24 12:18 MPV 9.7 fL (7.4-10.4) 10/09/24 12:18 Neut % (Auto) 34.3 % 10/09/24 12:18 Lymph % (Auto) 57.2 % 10/09/24 12:18 [place] % (Auto) 6.8 % 10/09/24 12:18 Eos % (Auto) 1.2 % 10/09/24 12:18 Baso % (Auto) 0.3 % 10/09/24 12:18 Neut # (Auto) 3.33 10^3/uL (1.8-7.7) 10/09/24 12:18 Lymph # (Auto) 5.6 10^3/uL (0.8-4.8) H 10/09/24 12:18 [place] # (Auto) 0.7 10^3/uL (0.2-0.9) 10/09/24 12:18 Eos # (Auto) 0.1 10^3/uL (0.0-0.8) 10/09/24 12:18 Baso # (Auto) 0.0 10^3/uL (0.0-0.1) 10/09/24 12:18 Nucleated RBC % (auto) 0 % 10/09/24 12:18 Nucleated RBCs # 0.0 /100WBC 10/09/24 12:18 PT 13.50 SECONDS (12.1-14.9) 10/09/24 12:18 INR 0.96 (0.8-1.2) 10/09/24 12:18 APTT 26.7 SECONDS (23.9-36.7) 10/09/24 12:18 Sodium 140 mmol/L (136-145) 10/09/24 12:18 Potassium 4.0 mmol/L (3.5-5.1) 10/09/24 12:18 Chloride 103 mmol/L (98-107) 10/09/24 12:18 Carbon Dioxide 29 mmol/L (22-29) 10/09/24 12:18 Anion Gap 12.0 (5-19) 10/09/24 12:18 BUN 19 mg/dL (8-23) 10/09/24 12:18 Creatinine 0.8 mg/dL (0.5-0.9) 10/09/24 12:18 GFR Calculation Not Reportable 10/09/24 12:18 Glucose 231 mg/dL (65-115) H 10/09/24 12:18 POC Glucose 214 mg/dL (70-110) H 10/09/24 12:06 Calculated Osmolality 300 mOsm/kg (285-295) H 10/09/24 12:18 Lactic Acid 1.0 mmol/L (0.5-2.2) 10/09/24 12:18 Calcium 9.7 mg/dL (8.5-10.5) 10/09/24 12:18 Total Bilirubin 0.3 mg/dL (0.15-1.2) 10/09/24 12:18 AST 18 U/L (0-32) 10/09/24 12:18 ALT 20 U/L (0-33) 10/09/24 12:18 Alkaline Phosphatase 54 U/L (35-105) 10/09/24 12:18 Total Protein 6.5 g/dL (6.6-8.7) L 10/09/24 12:18 Albumin 3.9 g/dL (3.5-5.2) 10/09/24 12:18 Globulin 2.6 g/dL (1.3-4.6) 10/09/24 12:18 Procalcitonin 0.04 ng/mL (0-0.5) 10/09/24 12:18 Urine Color Yellow (Yellow) 10/09/24 13:10 Urine Appearance Clear (CLEAR) 10/09/24 13:10 Urine pH 6.5 (5-7) 10/09/24 13:10 Ur Specific [place] 1.019 (1.005-1.030) 10/09/24 13:10 Urine Protein Negative (Negative) 10/09/24 13:10 Urine Glucose (UA) 2+ (Normal) H 10/09/24 13:10 Urine Ketones Trace (Negative) 10/09/24 13:10 Urine Blood Negative (Negative) 10/09/24 13:10 Urine Nitrate Negative (Negative) 10/09/24 13:10 Urine Bilirubin Negative (Negative) 10/09/24 13:10 Urine Urobilinogen 1.0 mg/dL (Negative) 10/09/24 13:10 Ur Leukocyte Esterase Trace (Negative) A 10/09/24 13:10 Urine RBC 0-2 /hpf (0-2) 10/09/24 13:10 Urine WBC 0-5 /hpf (0-5) 10/09/24 13:10 Ur Squamous Epith Cells 0-5 /hpf (0-5) 10/09/24 13:10 Amorphous Sediment Not Reportable 10/09/24 13:10 Urine Bacteria None seen /hpf (NONE) 10/09/24 13:10 Hyaline Casts 0.81 /lpf 10/09/24 13:10 Urine Opiates Screen Negative ng/mL (Negative) 10/09/24 13:10 Ur Barbiturates Screen Negative ng/mL (Negative) 10/09/24 13:10 Ur Phencyclidine Scrn Negative ng/mL (Negative) 10/09/24 13:10 Ur Amphetamines Screen Negative ng/mL (Negative) 10/09/24 13:10 U Benzodiazepines Scrn Negative ng/mL (Negative) 10/09/24 13:10 Urine Cocaine Screen Negative ng/mL (Negative) 10/09/24 13:10 U Marijuana (THC) Screen Negative ng/mL (Negative) 10/09/24 13:10 All radiology interpretation(s) finalized by discharge Discharge Plan Discharge Patient Disposition: Placed in Observation Clinical Impression: Transient ischemic attack Coding Level of Care Code ED Photograph Enlarger for Jose Rosenberg
--- NOTE | 2024-10-09 12:15 | ECG_ITS ---
[employer] Test Date: 2024-10-09 Pat Name: Sandhya Solis Department: Room: Gender: Female Railroad Operator: : [id number] Requested By: Vickie Ceballos Order Number: [id number] Pemberton MD: Haris Uribe M.D. Measurements Intervals [place] Rate: 58 P: 84 NV: 183 QRS: -72 QRSD: 142 T: 65 QT: 459 QTc: 451 Interpretive Statements SINUS BRADYCARDIA RIGHT BUNDLE BRANCH BLOCK [120+ ms QRS DURATION, UPRIGHT V1, 40+ ms S IN I/aVL/V4/V5/V6] LEFT ANTERIOR FASCICULAR BLOCK [QRS AXIS <= -45, QR IN I, RS IN II] MINIMAL VOLTAGE CRITERIA FOR LVH, CONSIDER NORMAL VARIANT [MEETS CRITERIA IN ONE OF: R(aVL), S(V1), R(V5), R(V5/V6)+S(V1)] POSSIBLE SEPTAL MYOCARDIAL INFARCTION , PROBABLY OLD [30 ms Q WAVE IN V1/V2] Compared to ECG 03/11/2022 20:10:28 Left anterior fascicular block now present Electronically Signed On 10-09-2024 22:21:37 CDT by Haris Uribe M.D. [email or web address]
[2024-10-09 12:30] LABS: Hematocrit 43.2 % (36-47); Hemoglobin 14.30 g/dL (11.27-16.99); Mean Corpuscular HGB Conc 33.1 g/dL (30-55); Mean Corpuscular Hemoglobin 30.4 pg (27-33); Mean Corpuscular Volume 91.9 fl (85-98); Nucleated Red Blood Cells % 0 %; Platelet Count 201 10^3/cmm (157-399); Red Blood Count 4.70 10^6/uL (3.85-5.65); White Blood Count 9.72 10^3/uL (3.29-11.43)
--- NOTE | 2024-10-09 12:42 | CT_ITS ---
WS: [id number] CTA HEAD AND NECK TECHNIQUE: Contrast enhanced CTA of the head and neck with coronal and sagittal reformatted images and maximum intensity projection (MIP) images. NASCET criteria utilized. CLINICAL INFORMATION: Possible stroke COMPARISON: None. DLP: 383.[address] scans at [facility] use at least one of these dose optimization techniques: automated exposure control; mA and/or kV adjustment per patient size (includes targeted exams where dose is matched to clinical indication); or iterative reconstruction. FINDINGS: RIGHT: No significant RIGHT ICA stenosis. LEFT: Less than 50% LEFT cervical ICA stenosis with moderate calcified atheromatous plaque INTRACRANIAL CTA: RIGHT dominant vertebral artery. Smaller but patent LEFT vertebral artery. Proximal basilar artery is patent. Mild intracranial atheromatous disease. Distal CIGARETTE MAKING MACHINE HOPPER FEEDER vessels are patent. Severe segmental narrowing of the LEFT mid CIGARETTE MAKING MACHINE HOPPER FEEDER. Distal vessel remains patent Both ICAs are patent at the skull base. Normal vascularity to the EMRE and MCA territories bilaterally. Disc osteophyte complexes C5-C6 and C6-C7 with mild to moderate central canal stenosis CT/CT angio headneck* [id number] IMPRESSION: 1. No significant RIGHT ICA stenosis. 2. Less than 50% LEFT cervical ICA stenosis with moderate calcified atheromato us plaque 3. Severe segmental stenosis in the LEFT mid CIGARETTE MAKING MACHINE HOPPER FEEDER P2 segment. Distal vessels re main patent. 4. Otherwise unremarkable intracranial CTA
[2024-10-09 12:43] LABS: INR 0.96 (0.8-1.2); Prothrombin Time 13.50 SECONDS (12.1-14.9)
[2024-10-09 12:44] LABS: Partial Thromboplastin Time 26.7 SECONDS (23.9-36.7)
[2024-10-09 12:48] LABS: Lactic Sepsis W/Reflex 1.0 mmol/L (0.5-2.2)
[2024-10-09 12:49] LABS: Alanine Aminotransferase 20 U/L (0-33); Albumin Level 3.9 g/dL (3.5-5.2); Alkaline Phosphatase 54 U/L (35-105); Anion Gap 12.0 (5-19); Aspartate Amino Transferase 18 U/L (0-32); Blood Urea Nitrogen 19 mg/dL (8-23); Calcium 9.7 mg/dL (8.5-10.5); Carbon Dioxide 29 mmol/L (22-29); Chloride 103 mmol/L (98-107); Creatinine Clr Calc Pharmacy 41.6501; Globulin 2.6 g/dL (1.3-4.6); Glucose 231 mg/dL (65-115); Osmolality Calculated 300 mOsm/kg (285-295); Potassium 4.0 mmol/L (3.5-5.1); Sodium 140 mmol/L (136-145); Total Protein 6.5 g/dL (6.6-8.7)
[2024-10-09 12:56] LABS: Procalcitonin 0.04 ng/mL (0-0.5); Slide Review Slide Review Perform
--- NOTE | 2024-10-09 12:57 | P.PNCC_ITS ---
Stroke Alert Activation ED Arrival Date: 10/09/24 ED Arrival Time: 12:04 ED Physican at Bedside: 12:04 Last Known Normal/at Baseline: < 1 hour ago Other Last Known Well Infomation: Stroke alert was called for this 8-year-old woman who walked in with somnolence, slurred speech and was immediately seen by Dr. Gloria. I called the emergency department and talked with triage as soon as the stroke alert was called and the patient was on her way to CT. After he evaluated her he reported that she was nonfocal on his exam but by 1229 she had some fluctuation in her exam and the marketing outreach coordinator noticed right sided weakness and left-sided numbness. She has had strokes in the past. Her risk factors for stroke include chronic lymphocytic leukemia, hypertension and diabetes. Stroke Alert Activated by: Treat nausea Stroke Alert Activation Time: 12:04 Stroke MD @ Bedside Time: 12:04 NIH Stroke Scale Time: 12:30 NIH stroke score NIHSS: Level Of Consciousness - 1a: 0 Level Of Consciousness Questions - 1b: Both Correct Level Of Consciousness Commands - 1c: Both Correct Best Gaze - 2: Normal Visual Titus - 3: No Visual Loss Facial Palsy - 4: Normal Motor Arm Right - 5: No Drift Motor Arm Left - 5: No Drift Motor Leg Right - 6: No Drift Motor Leg Left - 6: No Drift Limb Ataxia - 7: Absent Sensory - 8: Normal Best Language - 9: No Aphasia Dysarthia - 10: Mild/Moderate Dysarthia Extinction And Inattention - 11: 0 Score: Total Score: 1 Stroke Alert Data/Treatment Time to CT of Head: 12:04 CT Results Time: 12:31 CT Impression: Normal Stroke Risk Factors: hypertension and diabetes mellitus tPA Contraindication: tPA Contraindication: Treatment not indcated tPA Admin Prior to Arrival: No Patient & Family Educated on: Cause of Stroke, Risk Factors and Treament Plan Standardized Stroke Orders Used: Yes Critical Care Time Critical Care Time: 30 - 74 mins A&P Assessment and plan 1. Arterial ischemic stroke, vertebrobasilar, brainstem, remote, resolved: It sounds like she had a brainstem stroke threatened and has improved since arrival. On initial presentation she had a little bit of slurred speech and somnolence but was otherwise nonfocal as Dr. Gloria examined her on the way to CAT scan. Back in the room when examined by the marketing outreach coordinator, who is currently present during my exam, she had right sided ataxia and left-sided numbness. Her speech was slurred at that time. Now on my exam she was able to stand at the bedside with no loss of balance, no drift of any of the 4 extremities, normal sensation to touch, normal eye movements and NIH stroke scale score of 1 because of a trace of dysarthria when I first examined her that was gone by the time we finished the exam. All of her symptoms have resolved but it sounds like her threatened stroke was in the distribution of the posterior circulation and that it was a serious event so she needs to be hospitalized and monitored. Plan CT angiogram, echocardiogram, aspirin and Plavix and a statin. I will be glad to see her as an outpatient if needed but that is probably not necessary if she has no further symptoms. PDMP PDMP Reviewed: Not Reviewed Coding Level of Care Code Acute Code for Jose Rosenberg Diagnoses Arterial ischemic stroke, vertebrobasilar, brainstem, remote, resolved Z86.73
[2024-10-09 13:23] LABS: Glucose Urine UA 2+ (Normal); Nitrate Urine Negative (Negative); Specific Gravity, Urine 1.019 (1.005-1.030)
[2024-10-09 13:27] LABS: Add Urine Microscopic? YES
[2024-10-09 13:29] LABS: PCP Screen Urine Negative (Negative)
[2024-10-09] MEDS: iohexol 350 mg/mL 500 mL Btl (per mL) IV (13:45)
--- NOTE | 2024-10-09 16:38 | PM.HP ---
Providers/Chief Complaint Primary Care Provider: Crystal Rayo DO Chief Complaint: stroke like symptoms History of Present Illness Sandhya Solis is a 88 year old female With past medical history of previous stroke, CLL, diabetes, hypertension who presented to the hospital today with complaint of weakness and lightheadedness. At that time her speech was also slurred as reported by the . Upon arrival she appeared to be quite weak unable to get to the bed without assistance however no focal deficits. ER doctor examined her several times and her symptoms resolved however later on reappeared and then resolved again. No facial droop no drift on exam. Neurology was consulted stat. NIH at that time was 1. Patient was nonfocal at the time of neurology arrival. Initially account coordinator had noticed some right-sided weakness and left-sided numbness. Neurological suspicion of brainstem stroke that was threatened but improved since arrival. When neurology examined the patient and NIH was 1 with no loss of balance no drift in any of the 4 extremities normal sensation to touch normal eye movements and NIH score of 1. All symptoms resolved. Suspicion of posterior circulation stroke. CTA head and neck performed, echocardiogram ordered. Recommended to start aspirin Plavix statin. TNKase not given Patient seen by hospitalist. No focal deficits at this time. Is back to her baseline. Medications/Allergies Home Medications ?Medication ?Instructions ?Recorded ?Confirmed ?Last Taken ?Type aspirin 81 mg tablet,delayed 81 mg PO DAILY 08/03/22 10/09/24 10/09/24 History release amlodipine 5 mg tablet 5 mg PO DAILY 11/07/22 10/09/24 10/09/24 History blood sugar diagnostic (Lexos MediaTouch #10 ea 11/07/22 10/09/24 Unknown History Ultra Test strips) glimepiride 2 mg tablet 2 mg PO DAILY 11/07/22 10/09/24 10/09/24 History lancets 33 gauge (OneTouch Delica #100 ea 11/07/22 10/09/24 Unknown History Plus Lancet) lisinopril 10 mg tablet 10 mg PO DAILY 11/07/22 10/09/24 10/09/24 History Bilateral CMC Joint Brace #1 ea 07/14/23 10/09/24 Unknown Rx Diabetic Shoes with 3 Inserts #1 ea 01/30/24 10/09/24 Unknown Rx alendronate 70 mg tablet 70 mg PO Q7D 06/17/24 10/09/24 Unknown History Allergies Allergy/AdvReac Type Severity Reaction Status Date / Time Penicillins Allergy Unknown Verified 10/09/24 18:12 Sulfa (Sulfonamide Allergy ADR-Confusi Verified 10/09/24 18:12 Antibiotics) on PFSH Acute PFSH: Medical History (Updated 10/09/24 @ 18:14 by Judy Seth MD) Lymphocytosis History of skin cancer Family History Other Anesthesia complication CAD (coronary artery disease) Stroke Denies family history of Diabetes Clotting disorder Dementia Hyperlipidemia Psychiatric illness Chronic kidney disease (CKD) Suicide Bleeding disorder Lung disease Cancer Hypertension Social History Smoking and tobacco/nicotine status: never used tobacco/nicotine Vitals/I&O/Wt Last Vital Signs Temp 98.0 F 10/09/24 12:07 Pulse 58 L 10/09/24 15:55 Resp 21 H 10/09/24 15:55 BP 145/73 10/09/24 15:55 Pulse Ox 95 10/09/24 15:55 O2 Del Method Room Air 10/09/24 14:45 Weight last 48 hrs Weight 58.967 kg Physical Exam Narrative: General: Alert oriented x3, HEENT: Normocephalic, atraumatic, EOMI, breathing room air. Cardio: Regular rate rhythm, normal S1-S2, Respiratory: Clear to auscultation bilaterally no wheezes no rhonchi. GI: Abdomen soft, nontender, bowel sounds + Behavior: Appropriate and cooperative Extremities: No edema bilateral lower extremities Neuro: Nonfocal Data 10/10/24 04:30 10/10/24 04:30 Micro: Microbiology 10/09/24 12:56 Blood Culture - Preliminary Blood SPECIMEN COLLECTED 10/09/24 12:54 Blood Culture - Preliminary Blood SPECIMEN COLLECTED A&P Assessment and plan 1. Transient ischemic attack: 2. PVD (peripheral vascular disease): 3. CLL (chronic lymphocytic leukemia): 4. Hypertension: 5. Slurred speech: 6. Right sided weakness: Plan: #TIA/possible posterior circulation stroke?symptoms resolved #History of previous strokes #Diabetes mellitus type 2 #Hypertension ? TNKase not given. NIH 1 at the time of neurology evaluation. Patient symptoms had resolved. ? CTA head and neck does show segmental stenosis of [employer] however no intervention required at this time. ? Discussed with neurology over the phone. Continue on aspirin Plavix atorvastatin ? Neurochecks every 2 hours ? Placed on cardiac telemetry ? Check echo bubble study ? Placed on IV hydration normal saline 125 cc/h ? Hold amlodipine lisinopril allow permissive hypertension ? Stroke education ? Patient would likely require event monitor at discharge. ? Check lipid profile, hemoglobin A1c, TSH Full code DVT prophylaxis: Heparin SQ twice daily PDMP PDMP Reviewed: Not Reviewed Attestations Medical Necessity Statement*: TIA workup. Diagnoses Transient ischemic attack G45.9 PVD (peripheral vascular disease) I73.9 CLL (chronic lymphocytic leukemia) C91.10 Hypertension I10 Slurred speech R47.81 Right sided weakness R53.1
--- NOTE | 2024-10-09 16:46 | USCV_ITS ---
Sandhya Solis Age: 88 Gender: F : 1935 Exam Date: 10/09/2024 18:41 Ordering Phys: Judy Seth MD Technologist: JOSE EDUARDO Exam Location: [facility] [place] Indication: TIA workup, history of prior CVA, DM, HTN, BP: 159 / 83 HR: 53 Rhythm: Sinus Technical Quality: Adequate MEASUREMENTS (Male / Female) Normal Values 2D ECHO LV Diastolic Diameter PLAX 3.7 cm 4.2 - 5.9 / 3.9 - 5.3 cm IVS Diastolic Thickness 1.6 cm 0.6 - 1.0 / 0.6 - 0.9 cm IVS Systolic Thickness 1.9 cm LVPW Diastolic Thickness 1.1 cm 0.6 - 1.0 / 0.6 - 0.9 cm LVPW Systolic Thickness 1.6 cm LVOT Diameter 1.7 cm LV Ejection Fraction 2D Teich 71.9 % LV Ejection Fraction MOD 4C 54.6 % LV Ejection Fraction MOD 2C 69.6 % LV Ejection Fraction 2C AL 68.4 % LA Diameter 3.2 cm Aorta at Sinotubular Diameter 2.5 cm IVC Diameter 1.0 cm M-MODE LA Ao Ratio MM 1.2 AV Cusp Separation MM 1.9 cm DOPPLER AV Peak Velocity 112.0 cm/s LVOT Peak Velocity 71.0 cm/s AV Area Cont Eq vti 1.6 cm squared AV Area Cont Eq pk 1.5 cm squared MV Peak Velocity 78.0 cm/s MV Area PHT 3.0 cm squared Mitral E to A Ratio 0.8 TV Peak E Velocity 30.0 cm/s PV Peak Velocity 59.0 cm/s FINDINGS Left Ventricle Normal left ventricular size, systolic function and wall thickness, with no regional wall motion abnormalities. EF is 60- 65%. Right Ventricle Normal right ventricular size and systolic function. Right Atrium Normal right atrial size. Left Atrium Normal left atrial size. Mitral Valve Structurally normal mitral valve. Trace mitral valve regurgitation. Aortic Valve Structurally normal aortic valve. No aortic valve stenosis. Tricuspid Valve Insufficient TR jet to calculate RVSP Pulmonic Valve Not well visualized Pericardium Normal Aorta Normal in size IVC Appears to be normal CONCLUSIONS LV systolic function is normal with EF of 60-65% Trace mitral valve regurgitation. Bubble study is limited quality but grossly no evidence of right to left shunt. Gordy Alex MD (Electronically Signed) Final Date: 11 October 2024 14:56 S
[2024-10-09] MEDS: heparin 5,000 unit/mL INJ 1 mL 5000 UNIT SUBCUT (17:03)
[2024-10-09 17:08] LABS: Estmated Average Glucose 194; Hemoglobin A1C 8.4 % (4.0-6.0)
[2024-10-09 17:47] LABS: Cholesterol 205 mg/dL (0-200); HDL Cholesterol 46 mg/dL (60-100); Thyroid Stimulating Hormone 0.81 uIU/mL (0.27-4.20); Triglycerides 120 mg/dL (0-150)
--- NOTE | 2024-10-09 18:34 | PC.NURSE ---
Pt has orders for cardiac diet. Pt offered [place] and refused. Pt states that she can not eat bread. Pt states, I am diabetic and have been trying to keep my sugars under control. Pt states that she just wants to place her own order for the morning.
[2024-10-10] VITALS (9 sets, daily range): BP systolic 119–177; BP diastolic 60–78; PULSE 61–70; RESP 16–17; TEMP 36.4–36.8; O2SAT 92–97
[2024-10-10 05:41] LABS: Hematocrit 44.5 % (36-47); Hemoglobin 14.50 g/dL (11.27-16.99); Mean Corpuscular HGB Conc 32.6 g/dL (30-55); Mean Corpuscular Hemoglobin 30.3 pg (27-33); Mean Corpuscular Volume 92.9 fl (85-98); Nucleated Red Blood Cells % 0 %; Platelet Count 225 10^3/cmm (157-399); Red Blood Count 4.79 10^6/uL (3.85-5.65); White Blood Count 11.58 10^3/uL (3.29-11.43)
[2024-10-10 05:56] LABS: Alanine Aminotransferase 17 U/L (0-33); Albumin Level 3.6 g/dL (3.5-5.2); Alkaline Phosphatase 55 U/L (35-105); Anion Gap 14.3 (5-19); Aspartate Amino Transferase 16 U/L (0-32); Blood Urea Nitrogen 11 mg/dL (8-23); Calcium 8.5 mg/dL (8.5-10.5); Carbon Dioxide 26 mmol/L (22-29); Chloride 107 mmol/L (98-107); Creatinine Clr Calc Pharmacy 42.2465; Globulin 2.5 g/dL (1.3-4.6); Glucose 125 mg/dL (65-115); Magnesium 2.2 mg/dL (1.7-2.3); Osmolality Calculated 299 mOsm/kg (285-295); Potassium 3.3 mmol/L (3.5-5.1); Sodium 144 mmol/L (136-145); Total Protein 6.1 g/dL (6.6-8.7)
[2024-10-10 06:11] LABS: Slide Review Slide Review Perform
--- NOTE | 2024-10-10 08:06 | PC.NURSE ---
patient educated on risk of not using SCD's for VTE, she refused.
--- NOTE | 2024-10-10 08:23 | PC.NURSE ---
asset management coordinator- 10/09 ABRAHAM Grigsby and this nurse assessed NIHSS together bedside in ED.
--- NOTE | 2024-10-10 09:55 | PC.NURSE ---
patient scheduling coordinator rounds at 0855- patient is resting with eyes closed, left stroke education book on her bedside table and will try to see her this afternoon.
--- NOTE | 2024-10-10 10:46 | PHA.VACGOAL ---
Vancomycin Goal - Goal Vancomycin Goal:: 10-15 mg/L Vancomycin Indication:: SSTI - Therapy Current therapy:: Other Antibiotic Day of therpy:: Day []of [] . Actual body weight (kg): 134 lb 2 oz - Data Labs: WBC 11.58 10^3/uL (3.29-11.43) H 10/10/24 04:30 RBC 4.79 10^6/uL (3.85-5.65) 10/10/24 04:30 Hgb 14.50 g/dL (11.27-16.99) 10/10/24 04:30 Hct 44.5 % (36-47) 10/10/24 04:30 MCV 92.9 fl (85-98) 10/10/24 04:30 MCH 30.3 pg (27-33) 10/10/24 04:30 MCHC 32.6 g/dL (30-55) 10/10/24 04:30 RDW 13.5 % (12.1-15.1) 10/10/24 04:30 Sodium 144 mmol/L (136-145) 10/10/24 04:30 Potassium 3.3 mmol/L (3.5-5.1) L 10/10/24 04:30 Chloride 107 mmol/L (98-107) 10/10/24 04:30 Carbon Dioxide 26 mmol/L (22-29) 10/10/24 04:30 Anion Gap 14.3 (5-19) 10/10/24 04:30 BUN 11 mg/dL (8-23) 10/10/24 04:30 Creatinine 0.7 mg/dL (0.5-0.9) 10/10/24 04:30 GFR Calculation Not Reportable 10/10/24 04:30 Last dialysis session:: N/A Drug administration history:: Medications Ceftriaxone Sodium (Ceftriaxone 1,000 Mg Sdv) 1,000 mg IVP Q24H SIRIA; Protocol Treatment plan:: new consult Regimen:: ORDERED 1000 MG LOADING DOSE AND 500 MG Q12H MAINTENANCE DOSE PER PROTOCOL. Follow up:: DUE TO ADVANCED PATIENT AGE AND IMPAIRED RENAL FUNCTION, ORDERED EARLY RANDOM VANCOMYCIN LEVEL TO ENSURE PATIENT IS NOT SUPRATHERAPEUTIC. IF EARLY LEVEL RETURNS >15 MG/L, CONSIDER REDUCING MAINTENANCE DOSE. SHOULD THE LEVEL BE <15 MG/L, CONSIDER CONTINUING DOSE. WILL DRAW STEADY STATE TROUGH PRIOR TO 5TH DOSE. Rationale:: Allergies Penicillins Allergy (Verified 10/09/24 18:12) Unknown Sulfa (Sulfonamide Antibiotics) Allergy (Verified 10/09/24 18:12) ADR-Confusion Microbiology 10/09/24 12:56 Blood Blood Culture - Preliminary SPECIMEN COLLECTED 10/09/24 12:54 Blood Blood Culture - Preliminary SPECIMEN COLLECTED Laboratory Tests 10/09/24 10/10/24 12:18 04:30 WBC 9.72 11.58 H Creatinine 0.8 0.7 PER PATIENT CARE DISCHARGE PLAN NOTE, PATIENT IS PRESENTING WITH CELLULITIS. WBC TRENDING UP, RENAL FUNCTION CURRENTLY REDUCED BUT STABLE. PER PROTOCOL, STARTING 1000 MG LOADING DOSE NAD 500 MG Q12H. WILL EVALUATE CLOSELY TO ENSURE RENAL FUNCTION REMAINS STABLE AND VANCOMYCIN LEVELS STAY WITHIN RANGE.
[2024-10-10] MEDS: cefTRIAXone 1,000 mg SDV 1000 MG IVP (11:50)
--- NOTE | 2024-10-10 13:31 | P.PN_ITS ---
Subjective 2 Subjective: Seen this morning. All TIA symptoms have resolved. He does have a concern about a rash on her back. Vitals/I&O/Wt Last Vital Signs Temp 97.9 F 10/10/24 11:43 Pulse 61 10/10/24 11:43 Resp 16 10/10/24 11:43 BP 144/78 10/10/24 11:43 Pulse Ox 96 10/10/24 11:43 O2 Del Method Room Air 10/10/24 11:43 10/09/24 10/10/24 10/10/24 22:59 06:59 14:59 Intake Total 1000 / 1000 360 / 360 Balance 1000 / 1000 360 / 360 Weight last 48 hrs Weight 60.838 kg Weight 60.838 kg Weight 58.967 kg Physical Exam 2 Narrative: General: Alert oriented x3, HEENT: Normocephalic, atraumatic, EOMI, breathing room air. Cardio: Regular rate rhythm, normal S1-S2, Respiratory: Clear to auscultation bilaterally no wheezes no rhonchi. GI: Abdomen soft, nontender, bowel sounds + Behavior: Appropriate and cooperative Extremities: No edema bilateral lower extremities Neuro: Nonfocal Data 10/10/24 04:30 10/10/24 04:30 Micro: Microbiology 10/09/24 12:56 Blood Culture - Preliminary Blood NEGATIVE TO DATE 10/09/24 12:54 Blood Culture - Preliminary Blood NEGATIVE TO DATE A&P Assessment and plan 1. Transient ischemic attack: 2. PVD (peripheral vascular disease): 3. CLL (chronic lymphocytic leukemia): 4. Hypertension: 5. Slurred speech: 6. Right sided weakness: 7. Cellulitis: Plan: #TIA/possible posterior circulation stroke?symptoms resolved #History of previous strokes #Diabetes mellitus type 2 #Hypertension ? TNKase not given. NIH 1 at the time of neurology evaluation. Patient symptoms had resolved. ? 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 ? Discussed with neurology over the phone. Continue on aspirin Plavix atorvastatin ? Neurochecks every 2 hours ? Placed on cardiac telemetry ? Check echo bubble study ? Placed on IV hydration normal saline 125 cc/h ? Hold amlodipine lisinopril allow permissive hypertension ? Stroke education ? Patient would likely require event monitor at discharge. ? Check lipid profile, hemoglobin A1c, TSH Full code DVT prophylaxis: Heparin SQ twice daily 10/10/2024 Cellulitis of the back Placed on IV vancomycin and ceftriaxone. At discharge transition to cefdinir and doxycycline Could be continued aspirin atorvastatin Plavix Continue amlodipine 5 daily. Continue to hold lisinopril Hypokalemia: Oral potassium 40 x 1. Echocardiogram is pending PDMP PDMP Reviewed: Not Reviewed Attestations 2 Medical Necessity Statement*: Cellulitis of the back Diagnoses Transient ischemic attack G45.9 PVD (peripheral vascular disease) I73.9 CLL (chronic lymphocytic leukemia) C91.10 Hypertension I10 Slurred speech R47.81 Right sided weakness R53.1 Cellulitis L03.90
[2024-10-10] MEDS: heparin 5,000 unit/mL INJ 1 mL 5000 UNIT SUBCUT (17:28)
[2024-10-10] MEDS: vancomycin 500 MG in sodium chloride 0.9% (plus) 100 ML 200 MG IV (23:28)
[2024-10-11 04:00] VITALS: BP 161/69; PULSE 65; RESP 16; TEMP 36.9; O2SAT 96
[2024-10-11] MEDS: heparin 5,000 unit/mL INJ 1 mL 5000 UNIT SUBCUT (04:38)
[2024-10-11 05:01] LABS: Hematocrit 44.2 % (36-47); Hemoglobin 14.60 g/dL (11.27-16.99); Mean Corpuscular HGB Conc 33.0 g/dL (30-55); Mean Corpuscular Hemoglobin 30.1 pg (27-33); Mean Corpuscular Volume 91.1 fl (85-98); Nucleated Red Blood Cells % 0 %; Platelet Count 216 10^3/cmm (157-399); Red Blood Count 4.85 10^6/uL (3.85-5.65); White Blood Count 10.13 10^3/uL (3.29-11.43)
[2024-10-11 05:16] LABS: Alanine Aminotransferase 17 U/L (0-33); Albumin Level 3.7 g/dL (3.5-5.2); Alkaline Phosphatase 57 U/L (35-105); Blood Urea Nitrogen 11 mg/dL (8-23); Calcium 8.9 mg/dL (8.5-10.5); Carbon Dioxide 24 mmol/L (22-29); Chloride 108 mmol/L (98-107); Creatinine Clr Calc Pharmacy 42.2465; Globulin 2.8 g/dL (1.3-4.6); Glucose 147 mg/dL (65-115); Magnesium 2.2 mg/dL (1.7-2.3); Osmolality Calculated 302 mOsm/kg (285-295); Sodium 145 mmol/L (136-145); Total Protein 6.5 g/dL (6.6-8.7)
[2024-10-11 05:21] LABS: Anion Gap 16.9 (5-19); Potassium 3.9 mmol/L (3.5-5.1)
[2024-10-11 05:22] LABS: Aspartate Amino Transferase 19 U/L (0-32)
[2024-10-11 05:35] LABS: Slide Review Slide Review Perform
[2024-10-11 07:16] VITALS: BP 160/78; PULSE 61; RESP 15; TEMP 36.7; O2SAT 94
[2024-10-11 11:13] VITALS: BP 152/72; PULSE 62; RESP 15; TEMP 36.7; O2SAT 98
--- NOTE | 2024-10-11 13:10 | PM.DCS ---
Discharge Providers Date of Admission: 10/09/24 17:08 Date of Discharge: October 11, 2024 Attending Provider at Admission: Judy Seth MD Attending Provider at Discharge: Judy Seth MD Primary Care Provider: Crystal Rayo DO Diagnoses at Discharge Discharge Diagnosis 1. Transient ischemic attack: 2. PVD (peripheral vascular disease): 3. CLL (chronic lymphocytic leukemia): 4. Hypertension: 5. Slurred speech: 6. Right sided weakness: 7. Cellulitis: Reason for Visit Reason for Visit: stroke like symptoms Hospital Course Hospital Course Presented to the hospital with strokelike symptoms diagnosed with a TIA. CT head and neck completed head CT completed. Please see neuro note for further details. She was back to baseline. Echo with bubble study completed which did not show evidence of [id number] shunt. Trace mitral valve regurgitation present. Patient will be ordered an event monitor at time of discharge as well to rule out underlying atrial fibrillation. Patient started on aspirin Plavix atorvastatin per neurology recommendations and to follow-up with neurology as an outpatient Also had cellulitis on her back which improved with IV antibiotics. She was transition to Levaquin and linezolid for neck 7 days and discharged home in stable condition. Physical Exam Narrative: General: Alert oriented x3, HEENT: Normocephalic, atraumatic, EOMI, breathing room air. Cardio: Regular rate rhythm, normal S1-S2, Respiratory: Clear to auscultation bilaterally no wheezes no rhonchi. GI: Abdomen soft, nontender, bowel sounds + Behavior: Appropriate and cooperative Extremities: No edema bilateral lower extremities Neuro: Nonfocal Discharge Data Studies Completed and Pending Completed Studies During Hospitalization Category Date Time Status CT head thrombolytic [id number] Stat Cat Scan 10/09/24 12:04 Completed CTA head neck [CT angio headneck* [id number]] Stat Cat Scan 10/09/24 12:42 Completed Pending at discharge Category Date Time Status Blood Culture Stat Lab 10/09/24 12:56 Results Vancomycin Random Routine Lab 10/11/24 22:00 Ordered Vancomycin Trough Timed Lab 10/12/24 22:00 Ordered CV. echo w/w bubble cont [id number] Stat Ultrasound 10/09/24 16:46 Taken Radiology Impressions Head CT 10/09/24 12:04 IMPRESSION: 1. No evidence of intracranial hemorrhage or mass effect. 2. No acute intracranial findings. Notified Vickie Gloria MD at 10/09/2024 12:27 PM. Head/Neck CTA 10/09/24 12:42 IMPRESSION: 1. No significant RIGHT ICA stenosis. 2. Less than 50% LEFT cervical ICA stenosis with moderate calcified atheromatous plaque 3. Severe segmental stenosis in the LEFT mid LOG DRIVER P2 segment. Distal vessels remain patent. 4. Otherwise unremarkable intracranial CTA Laboratory Results WBC 10.13 10^3/uL (3.29-11.43) 10/11/24 04:32 RBC 4.85 10^6/uL (3.85-5.65) 10/11/24 04:32 Hgb 14.60 g/dL (11.27-16.99) 10/11/24 04:32 Hct 44.2 % (36-47) 10/11/24 04:32 MCV 91.1 fl (85-98) 10/11/24 04:32 MCH 30.1 pg (27-33) 10/11/24 04:32 MCHC 33.0 g/dL (30-55) 10/11/24 04:32 RDW 13.2 % (12.1-15.1) 10/11/24 04:32 Plt Count 216 10^3/cmm (157-399) 10/11/24 04:32 MPV 10.1 fL (7.4-10.4) 10/11/24 04:32 Neut % (Auto) 22.4 % 10/11/24 04:32 Lymph % (Auto) 67.6 % 10/11/24 04:32 Mcleod % (Auto) 6.8 % 10/11/24 04:32 Eos % (Auto) 2.8 % 10/11/24 04:32 Baso % (Auto) 0.2 % 10/11/24 04:32 Neut # (Auto) 2.27 10^3/uL (1.8-7.7) 10/11/24 04:32 Lymph # (Auto) 6.9 10^3/uL (0.8-4.8) H 10/11/24 04:32 Mcleod # (Auto) 0.7 10^3/uL (0.2-0.9) 10/11/24 04:32 Eos # (Auto) 0.3 10^3/uL (0.0-0.8) 10/11/24 04:32 Baso # (Auto) 0.0 10^3/uL (0.0-0.1) 10/11/24 04:32 Nucleated RBC % (auto) 0 % 10/11/24 04:32 Nucleated RBCs # 0.0 /100WBC 10/11/24 04:32 PT 13.50 SECONDS (12.1-14.9) 10/09/24 12:18 INR 0.96 (0.8-1.2) 10/09/24 12:18 APTT 26.7 SECONDS (23.9-36.7) 10/09/24 12:18 Sodium 145 mmol/L (136-145) 10/11/24 04:32 Potassium 3.9 mmol/L (3.5-5.1) 10/11/24 04:32 Chloride 108 mmol/L (98-107) H 10/11/24 04:32 Carbon Dioxide 24 mmol/L (22-29) 10/11/24 04:32 Anion Gap 16.9 (5-19) 10/11/24 04:32 BUN 11 mg/dL (8-23) 10/11/24 04:32 Creatinine 0.6 mg/dL (0.5-0.9) 10/11/24 04:32 GFR Calculation Not Reportable 10/11/24 04:32 Glucose 147 mg/dL (65-115) H 10/11/24 04:32 POC Glucose 171 mg/dL (70-110) H 10/11/24 11:16 Estimat Average Glucose 194 10/09/24 12:18 Hemoglobin A1c 8.4 % (4.0-6.0) H 10/09/24 12:18 Calculated Osmolality 302 mOsm/kg (285-295) H 10/11/24 04:32 Lactic Acid 1.0 mmol/L (0.5-2.2) 10/09/24 12:18 Calcium 8.9 mg/dL (8.5-10.5) 10/11/24 04:32 Magnesium 2.2 mg/dL (1.7-2.3) 10/11/24 04:32 Total Bilirubin 0.4 mg/dL (0.15-1.2) 10/11/24 04:32 AST 19 U/L (0-32) 10/11/24 04:32 ALT 17 U/L (0-33) 10/11/24 04:32 Alkaline Phosphatase 57 U/L (35-105) 10/11/24 04:32 Total Protein 6.5 g/dL (6.6-8.7) L 10/11/24 04:32 Albumin 3.7 g/dL (3.5-5.2) 10/11/24 04:32 Globulin 2.8 g/dL (1.3-4.6) 10/11/24 04:32 Triglycerides 120 mg/dL (0-150) 10/09/24 12:18 Cholesterol 205 mg/dL (0-200) H 10/09/24 12:18 LDL Cholesterol, Calc 135 mg/dL (50-129) H 10/09/24 12:18 HDL Cholesterol 46 mg/dL (60-100) L 10/09/24 12:18 LDL/HDL Ratio 2.93 RATIO (0.00-3.22) 10/09/24 12:18 Cholesterol/HDL Ratio 4.46 mg/dL (0.0-4.40) H 10/09/24 12:18 Procalcitonin 0.04 ng/mL (0-0.5) 10/09/24 12:18 TSH 0.81 uIU/mL (0.27-4.20) 10/09/24 12:18 Urine Color Yellow (Yellow) 10/09/24 13:10 Urine Appearance Clear (CLEAR) 10/09/24 13:10 Urine pH 6.5 (5-7) 10/09/24 13:10 Ur Specific [place] 1.019 (1.005-1.030) 10/09/24 13:10 Urine Protein Negative (Negative) 10/09/24 13:10 Urine Glucose (UA) 2+ (Normal) H 10/09/24 13:10 Urine Ketones Trace (Negative) 10/09/24 13:10 Urine Blood Negative (Negative) 10/09/24 13:10 Urine Nitrate Negative (Negative) 10/09/24 13:10 Urine Bilirubin Negative (Negative) 10/09/24 13:10 Urine Urobilinogen 1.0 mg/dL (Negative) 10/09/24 13:10 Ur Leukocyte Esterase Trace (Negative) A 10/09/24 13:10 Urine RBC 0-2 /hpf (0-2) 10/09/24 13:10 Urine WBC 0-5 /hpf (0-5) 10/09/24 13:10 Ur Squamous Epith Cells 0-5 /hpf (0-5) 10/09/24 13:10 Amorphous Sediment Not Reportable 10/09/24 13:10 Urine Bacteria None seen /hpf (NONE) 10/09/24 13:10 Hyaline Casts 0.81 /lpf 10/09/24 13:10 Urine Opiates Screen Negative ng/mL (Negative) 10/09/24 13:10 Ur Barbiturates Screen Negative ng/mL (Negative) 10/09/24 13:10 Ur Phencyclidine Scrn Negative ng/mL (Negative) 10/09/24 13:10 Ur Amphetamines Screen Negative ng/mL (Negative) 10/09/24 13:10 U Benzodiazepines Scrn Negative ng/mL (Negative) 10/09/24 13:10 Urine Cocaine Screen Negative ng/mL (Negative) 10/09/24 13:10 U Marijuana (THC) Screen Negative ng/mL (Negative) 10/09/24 13:10 Vitals Last Vital Signs Temp 98.1 F 10/11/24 11:13 Pulse 62 10/11/24 11:13 Resp 15 10/11/24 11:13 BP 152/72 10/11/24 11:13 Pulse Ox 98 10/11/24 11:13 O2 Del Method Room Air 10/11/24 11:13 Discharge Plan Discharge Patient Disposition: Home Condition: Stable Prescriptions: New atorvastatin 40 mg Tablet 80 mg PO BEDTIME Qty: 30 0RF aspirin 81 mg Tablet,Delayed Release (Dr/Ec) 81 mg PO DAILY Qty: 30 0RF clopidogrel 75 mg Tablet 75 mg PO DAILY Qty: 30 0RF linezolid 600 mg tablet 600 mg PO Q12H 7 Days Qty: 14 0RF levofloxacin 500 mg tablet 500 mg PO DAILY 6 Days Qty: 6 0RF Continued (DME) Diabetic Shoes with 3 Inserts See Rx Instructions .Route .MEDSUPPLY Qty: 1 0RF Rx Instructions: As directed HOME aspirin 81 mg tablet,delayed release (DR/EC) 81 mg PO DAILY amlodipine 5 mg tablet 5 mg PO DAILY (DME) OneTouch Ultra Test Strip See Rx Instructions .ROUTE .MEDSUPPLY Qty: 10 Rx Instructions: As directed (DME) lancets [OneTouch Delica Plus Lancet] 33 gauge misc See Rx Instructions .ROUTE .MEDSUPPLY Qty: 100 Rx Instructions: As directed lisinopril 10 mg tablet 10 mg PO DAILY (DME) Bilateral CMC Joint Brace See Rx Instructions .Route .MEDSUPPLY Qty: 1 0RF Rx Instructions: As directed alendronate 70 mg tablet 70 mg PO Q7D Changed glimepiride 2 mg tablet 1 mg PO DAILY Qty: 30 0RF Discharge Order = DC NOW: Discharge Order (Routine); Ordered 10/11/24 Ordered By: Judy Seth Other Ambulatory Orders: Physical Therapy Eval and Treat Outpatient (Order) Timeframe: 3 Days Facility: [facility] - Location: Physical Therapy [place] Ordered By: Judy Seth MCT/Event Monitor 21 Days (Routine) Timeframe: 1 Day Facility: [facility] - Location: Radiology Ordered By: Judy Seth Referrals: [facility] Outpatient Therapy [Outside] Referral Note: A Referral has been sent for OP Physical therapy if you have not heard from them to schedule in 2 business days. Please call to schedule. If appointment is made and unable to keep please call to reschedule or cancel. Hanane Phan DO [Physician, Dermatology] - 10/16/24 8:30 am Referral Note: Crystal Rayo DO [Primary Care Provider, Family Practice] - 10/16/24 11:20 am Discharge Diet: Cardiac and Diabetic Discharge Activity: As per PT/OT instructions Patient Instructions: Cellulitis, Aspirin (By mouth), Atorvastatin (By mouth), Levofloxacin (By mouth), Clopidogrel (By mouth), Linezolid (By mouth), Opioid Safety, Stroke Stoplight, Patient Portal & Annabel Instructions, TIA Discharge Attestations Time Spent in Discharge Care*: less than 30 min Quality Metrics Clinical Quality Measures [ No reported AMI, CVA or VTE this stay] Coding Level of Care Code Acute Code for Chg Fwd Diagnoses Transient ischemic attack G45.9 PVD (peripheral vascular disease) I73.9 CLL (chronic lymphocytic leukemia) C91.10 Hypertension I10 Slurred speech R47.81 Right sided weakness R53.1 Cellulitis L03.90
[2024-10-11 14:31] VITALS: BP 152/72; PULSE 62; RESP 15; TEMP 36.7; O2SAT 98
== END 2024-10-11 13:55 | disposition home or self-care (01) ==
LOC: ER 16:55 → ER IP 17:08 → MEDSURG 18:37
PROVIDERS: Admitting Provider Internal Medicine; Emergency Provider Emergency Medicine; PCP Family Medicine; Visit Provider Internal Medicine
DX: G45.9 Transient cerebral ischemic attack, unspecified (principal); I73.9 Peripheral vascular disease, unspecified; C91.10 Chronic lymphocytic leukemia of B-cell type not having achieved remission; I10 Essential (primary) hypertension; R47.81 Slurred speech; R43.1 Parosmia; L03.90 Cellulitis, unspecified; Z79.82 Long term (current) use of aspirin; Z86.73 Personal history of transient ischemic attack (TIA), and cerebral infarction without residual deficits; E11.9 Type 2 diabetes mellitus without complications; Z85.828 Personal history of other malignant neoplasm of skin
CPT/HCPCS: 36415; 36416; 70450; 70496; 70498; 80053; 80061; 80306; 81001; 82962; 83036; 83605; 83735; 84145; 84443; 85025; 85610; 85730; 87040; 93005; 94664; 96365; 96366; 96372; 96375; 97110; 97116; 97161; 97165; 99285; C8929; G0378; J0696; J1644; J3373; J7030; J7050; J9999

== ENCOUNTER → 2024-11-20 09:45 | Outpatient (BNVA) | payer MEDICARE, SELFPAY | PROVIDERS: PCP Family Medicine; Visit Provider Nurse Practitioner Family | DX: L57.8 Other skin changes due to chronic exposure to nonionizing radiation (principal); L81.4 Other melanin hyperpigmentation; L82.1 Other seborrheic keratosis; D22.61 Melanocytic nevi of right upper limb, including shoulder; L57.0 Actinic keratosis; D48.5 Neoplasm of uncertain behavior of skin | CPT/HCPCS: 11102; 17004; 99203 ==

== ENCOUNTER → 2024-12-02 13:59 | Outpatient (BNVA) | payer MEDICARE, SELFPAY | PROVIDERS: PCP Family Medicine; Visit Provider Podiatrist Foot & Ankle Surgery | DX: E11.42 Type 2 diabetes mellitus with diabetic polyneuropathy (principal); L60.3 Nail dystrophy; L84 Corns and callosities; E11.8 Type 2 diabetes mellitus with unspecified complications; I73.9 Peripheral vascular disease, unspecified | CPT/HCPCS: 11056; 11721 ==

== ENCOUNTER → 2024-12-24 15:26 | Outpatient (BNVA) | payer MEDICARE, SELFPAY | PROVIDERS: PCP Family Medicine; Visit Provider Nurse Practitioner Family | DX: B35.4 Tinea corporis (principal); L57.8 Other skin changes due to chronic exposure to nonionizing radiation; L81.4 Other melanin hyperpigmentation; L82.1 Other seborrheic keratosis; D22.61 Melanocytic nevi of right upper limb, including shoulder | CPT/HCPCS: 99213 ==

== ENCOUNTER → 2025-02-04 14:05 | Outpatient (BNVA) | payer MEDICARE, SELFPAY | PROVIDERS: PCP Family Medicine; Visit Provider Nurse Practitioner Family | DX: B35.4 Tinea corporis (principal); D69.2 Other nonthrombocytopenic purpura | CPT/HCPCS: 99213 ==